=== PATIENT | female | born 1975 | race Caucasian/White ===

== ENCOUNTER → 2016-09-12 | Outpatient (CLI) | payer BC | END | disposition home or self-care (01) | LOC: MW.CHIM 11:05 | PROVIDERS: ATTEND Internal Medicine | DX: E07.9 Disorder of thyroid, unspecified (principal) | CPT/HCPCS: 36415; 84439; 84443 ==

== ENCOUNTER 2018-08-14 15:33 | Emergency (ER) | payer BC ==
--- NOTE | 2018-08-14 16:45 | EDM.PDOC ---
ED HPI GENERAL MEDICAL PROBLEM - General Chief Complaint: General Stated Complaint: LEFT EAR BLEEDING PT IS ON BLOOD THINNERS Time Seen by Provider: 08/14/18 15:35 - History of Present Illness INITIAL COMMENTS - FREE TEXT/NARRATIVE: HISTORY AND PHYSICAL: History of present illness: Patient's 43-year-old female presents with concern of bleeding from a air ring that was placed earlier today. Patient is on Plavix and aspirin for acute ND and stent placement that occurred in 2014. Review of systems: As per history of present illness and below otherwise all systems reviewed and negative. Past medical history: As per history of present illness and as reviewed below otherwise noncontributory. Surgical history: As per history of present illness and as reviewed below otherwise noncontributory. Social history: No reported history of drug or alcohol abuse. Family history: As per history of present illness and as reviewed below otherwise noncontributory. Physical exam: HEENT: Atraumatic, normocephalic, pupils reactive, negative for conjunctival pallor or scleral icterus, mucous membranes moist, throat clear, neck supple, nontender, trachea midline. Patient is significant bleeding in the form of venous ooze from her ear ring in the left pinna cartilage. Lungs: Clear to auscultation, breath sounds equal bilaterally, chest nontender. Heart: S1S2, regular, negative for clicks, rubs, or JVD. Abdomen: Soft, nondistended, nontender. Negative for masses or hepatosplenomegaly. Negative for costovertebral tenderness. Pelvis: Stable nontender. Genitourinary: Deferred. Rectal: Deferred. Extremities: Atraumatic, negative for cords or calf pain. Neurovascular unremarkable. Neuro: Awake, alert, oriented. Cranial nerves II through XII unremarkable. Cerebellum unremarkable. Motor and sensory unremarkable throughout. Exam nonfocal. Diagnostics: None Therapeutics: Blood and clot was removed Surgicel Vaseline gauze and 4 x 4 with occlusive dressing was placed with good hemostasis Impression: #1 coagulopathy with bleeding status post ear ring placement Definitive disposition and diagnosis as appropriate pending reevaluation and review of above. - Related Data Allergies Allergy/AdvReac Type Severity Reaction Status Date / Time No Known Allergies Allergy Verified 08/14/18 15:43 Home Meds: Home Meds Metoprolol Succinate [Toprol XL] 25 mg PO DAILY 12/20/16 [History] Prasterone (DHEA)/Calcium Carb [DHEA] 15 mg PO ASDIRECTED 05/14/16 [History] Simvastatin [Zocor] 20 mg PO DAILY 05/14/16 [History] Aspirin 81 mg PO DAILY 08/14/18 [History] Progesterone,Micronized [Progesterone] 1 tab PO ASDIRECTED PRN 08/14/18 [History ] Thyroid,Pork [Information Security Associate Thyroid 120] 112.5 mg PO DAILY 08/14/18 [History] Past Medical History HEENT History: Reports: None Cardiovascular History: Reports: CAD, High Cholesterol, ND, Stents, Other (See Below) Respiratory History: Reports: None Gastrointestinal History: Reports: None Genitourinary History: Reports: None Musculoskeletal History: Reports: Other (See Below) Other Musculoskeletal History: osteopenia Neurological History: Reports: Migraines Psychiatric History: Reports: Anxiety, Depression Endocrine/Metabolic History: Reports: Hypothyroidism Hematologic History: Reports: None - Infectious Disease History Infectious Disease History: Reports: Chicken Pox - Past Surgical History Head Surgeries/Procedures: Reports: None HEENT Surgical History: Reports: Oral Surgery, Tonsillectomy GI Surgical History: Reports: Hernia, Inguinal, Hernia Repair/Other - History Comment History Comment: denies etoh Social & Family History - Family History Family Medical History: Noncontributory - Tobacco Use Smoking Status *Q: Never Smoker - Caffeine Use Caffeine Use: Reports: Soda - Recreational Drug Use Recreational Drug Use: No ED ROS GENERAL - Review of Systems Review Of Systems: ROS reveals no pertinent complaints other than HPI. ED EXAM, GENERAL - Physical Exam Exam: See Below (See dictation) Course - Vital Signs Last Recorded V/S: Last Vital Signs Temp 36.3 C 08/14/18 15:38 Pulse 105 H 08/14/18 15:38 Resp 16 08/14/18 15:38 BP 122/68 08/14/18 15:38 Pulse Ox 98 08/14/18 15:38 Departure - Departure Time of Disposition: 16:44 Disposition: Home, Self-Care 01 Condition: Good Clinical Impression: Ear wound, Coagulopathy - Discharge Information Referrals: PCP,Unknown [Primary Care Provider] - Additional Instructions: The following information is given to patients seen in the emergency department who are being discharged to home. This information is to outline your options for follow-up care. We provide all patients seen in our emergency department with a follow-up referral. The need for follow-up, as well as the timing and circumstances, are variable depending upon the specifics of your emergency department visit. If you don't have a primary care physician on staff, we will provide you with a referral. We always advise you to contact your personal physician following an emergency department visit to inform them of the circumstance of the visit and for follow-up with them and/or the need for any referrals to a consulting specialist. The emergency department will also refer you to a specialist when appropriate. This referral assures that you have the opportunity for followup care with a specialist. All of these measure are taken in an effort to provide you with optimal care, which includes your followup. Under all circumstances we always encourage you to contact your private physician who remains a resource for coordinating your care. When calling for followup care, please make the office aware that this follow-up is from your recent emergency room visit. If for any reason you are refused follow-up, please contact the [facility] emergency department at and asked to speak to the emergency department charge nurse. Dressing as directed monitor for bleeding as discussed return for reevaluation in 24-48 hours hold aspirin and Plavix
[2018-08-14] MEDS ORDERED: Acetaminophen/HYDROcodone 325-5 MG Tab PO ONE (16:56)
[2018-08-14] MEDS ORDERED: Acetaminophen/HYDROcodone 325-5 MG Tab ONE (16:58)
[2018-08-14 17:07] VITALS: BP 97/51
== END 2018-08-14 17:04 | disposition home or self-care (01) ==
LOC: MW.ED 15:33
DX: H92.22 Otorrhagia, left ear (principal); D68.9 Coagulation defect, unspecified; Z79.899 Other long term (current) drug therapy; E78.00 Pure hypercholesterolemia, unspecified; I25.2 Old myocardial infarction; F32.9 Major depressive disorder, single episode, unspecified; E03.9 Hypothyroidism, unspecified
CPT/HCPCS: 99283; A9270

== ENCOUNTER 2018-08-16 16:12 | Emergency (ER) | payer BC ==
--- NOTE | 2018-08-16 16:36 | EDM.PDOC ---
ED HPI GENERAL MEDICAL PROBLEM - General Chief Complaint: Wound Recheck Stated Complaint: FOLLOW UP Time Seen by Provider: 08/16/18 16:31 Source of Information: Reports: Patient History Limitations: Reports: No Limitations - History of Present Illness INITIAL COMMENTS - FREE TEXT/NARRATIVE: HISTORY AND PHYSICAL: History of present illness: Patient is a 43-year-old female here for wound recheck. Patient had an earring placed in the cartilage of her left ear 2 days ago. She presented to the ED after having it placed as it would not stop bleeding. Patient is on plavix and aspirin for history of acute PA and stent placement. She has not noticed any bleeding since it was packed with surgical and then wrapped with gauze. Review of systems: As per history of present illness and below otherwise all systems reviewed and negative. Past medical history: As per history of present illness and as reviewed below otherwise noncontributory. Surgical history: As per history of present illness and as reviewed below otherwise noncontributory. Social history: No reported history of drug or alcohol abuse. Family history: As per history of present illness and as reviewed below otherwise noncontributory. Physical exam: General: Patient sitting comfortably in no acute distress and nontoxic appearing HEENT: There is an earring in the antihelix of the left ear with dried blood noted around this. Atraumatic, normocephalic, pupils reactive, negative for conjunctival pallor or scleral icterus, mucous membranes moist, throat clear, neck supple, nontender, trachea midline. No meningeal signs. Lungs: Clear to auscultation, breath sounds equal bilaterally, chest nontender. Heart: S1S2, regular, negative for clicks, rubs, or overt murmur. Abdomen: Soft, nondistended, nontender. Negative for masses or hepatosplenomegaly. Negative for costovertebral tenderness. No rigidity, rebound , guarding. Pelvis: Stable nontender. Genitourinary: Deferred. Rectal: Deferred. Extremities: Atraumatic, negative for cords or calf pain. Neurovascular unremarkable. Neuro: Awake, alert, oriented. Cranial nerves II through XII unremarkable. Cerebellum unremarkable. Motor and sensory unremarkable throughout. Exam nonfocal. Notes: Diagnostics: None Therapeutics: None Prescriptions: None Impression: Wound recheck Plan: 1. Do no mess with the earring or sleep on the left ear as discussed 2. Follow up with primary care provider 3. Return to ED As needed as discussed Definitive disposition and diagnosis as appropriate pending reevaluation and review of above. - Related Data Allergies Allergy/AdvReac Type Severity Reaction Status Date / Time No Known Allergies Allergy Verified 08/14/18 15:43 Home Meds: Home Meds Metoprolol Succinate [Toprol XL] 25 mg PO DAILY 05/14/16 [History] Prasterone (DHEA)/Calcium Carb [DHEA] 15 mg PO ASDIRECTED 05/14/16 [History] Simvastatin [Zocor] 20 mg PO DAILY 05/14/16 [History] Aspirin 81 mg PO DAILY 08/14/18 [History] Progesterone,Micronized [Progesterone] 1 tab PO ASDIRECTED PRN 08/14/18 [History ] Thyroid,Pork [Asphalt Raker Thyroid 120] 112.5 mg PO DAILY 08/14/18 [History] Clopidogrel [Plavix] 75 mg PO DAILY 08/16/18 [History] Past Medical History HEENT History: Reports: None Cardiovascular History: Reports: CAD, High Cholesterol, PA, Stents, Other (See Below) Respiratory History: Reports: None Gastrointestinal History: Reports: None Genitourinary History: Reports: None Musculoskeletal History: Reports: Other (See Below) Other Musculoskeletal History: osteopenia Neurological History: Reports: Migraines Psychiatric History: Reports: Anxiety, Depression Endocrine/Metabolic History: Reports: Hypothyroidism Hematologic History: Reports: None - Infectious Disease History Infectious Disease History: Reports: Chicken Pox - Past Surgical History Head Surgeries/Procedures: Reports: None HEENT Surgical History: Reports: Oral Surgery, Tonsillectomy GI Surgical History: Reports: Hernia, Inguinal, Hernia Repair/Other - History Comment History Comment: denies etoh Social & Family History - Family History Family Medical History: Noncontributory - Tobacco Use Smoking Status *Q: Never Smoker Second Hand Smoke Exposure: No - Caffeine Use Caffeine Use: Reports: Soda - Recreational Drug Use Recreational Drug Use: No ED ROS GENERAL - Review of Systems Review Of Systems: ROS reveals no pertinent complaints other than HPI. ED EXAM, SKIN/RASH Exam: See Below (see dictation) Course - Vital Signs Last Recorded V/S: Last Vital Signs Temp 96.5 F 08/16/18 16:21 Pulse 75 08/16/18 16:21 Resp 18 08/16/18 16:21 BP 123/46 L 08/16/18 16:21 Pulse Ox 98 08/16/18 16:21 Departure - Departure Time of Disposition: 16:57 Disposition: Home, Self-Care 01 Condition: Good Clinical Impression: Encounter for wound re-check - Discharge Information Referrals: PCP,Unknown [Primary Care Provider] - Forms: ED Department Discharge Additional Instructions: The following information is given to patients seen in the emergency department who are being discharged to home. This information is to outline your options for follow-up care. We provide all patients seen in our emergency department with a follow-up referral. The need for follow-up, as well as the timing and circumstances, are variable depending upon the specifics of your emergency department visit. If you don't have a primary care physician on staff, we will provide you with a referral. We always advise you to contact your personal physician following an emergency department visit to inform them of the circumstance of the visit and for follow-up with them and/or the need for any referrals to a consulting specialist. The emergency department will also refer you to a specialist when appropriate. This referral assures that you have the opportunity for follow-up care with a specialist. All of these measure are taken in an effort to provide you with optimal care, which includes your follow-up. Under all circumstances we always encourage you to contact your private physician who remains a resource for coordinating your care. When calling for follow-up care, please make the office aware that this follow-up is from your recent emergency room visit. If for any reason you are refused follow-up, please contact the [facility] Emergency Department at and asked to speak to the emergency department charge nurse. [facility] [address] [place] [id number] [address] 1. Do no mess with the earring or sleep on the left ear as discussed 2. Follow up with primary care provider 3. Return to ED As needed as discussed
[2018-08-16 17:22] VITALS: BP 113/61
== END 2018-08-16 17:10 | disposition home or self-care (01) ==
LOC: MW.ED 16:12
DX: Z48.00 Encounter for change or removal of nonsurgical wound dressing (principal); I25.2 Old myocardial infarction; E03.9 Hypothyroidism, unspecified; Z79.899 Other long term (current) drug therapy; Z79.82 Long term (current) use of aspirin; Z79.02 Long term (current) use of antithrombotics/antiplatelets
CPT/HCPCS: 99282

== ENCOUNTER → 2020-03-01 | Day surgery (SDC) | payer BC ==
[~2020-03-01] MED LIST: Lactated Ringers 1,000 ML IV SCH; Sodium Chloride 0.9% 10 ML SDV IV PRN; Sodium Chloride 0.9% 10 ML Syringe FLUSH PRN; Sodium Chloride 0.9% 2.5 ML Syringe FLUSH PRN
--- NOTE | 2020-03-01 10:34 | PCM.SN.2 ---
- Free Text/Narrative Note: covid +ve, colonoscopy cancelled, pls call office reschedule 6 wks later
== END ==
LOC: MW.SDS 08:29
PROVIDERS: ATTEND Surgery
DX: K62.5 Hemorrhage of anus and rectum (principal); U07.1 COVID-19; Z53.09 Procedure and treatment not carried out because of other contraindication
CPT/HCPCS: U0002

== ENCOUNTER 2020-03-08 08:05 | Day surgery (SDC) | payer BC ==
[~2020-03-08 08:05] MED LIST changes: -Sodium Chloride 0.9% 10 ML SDV IV PRN; -Sodium Chloride 0.9% 10 ML Syringe FLUSH PRN; -Sodium Chloride 0.9% 2.5 ML Syringe FLUSH PRN
[2020-03-08] MEDS ORDERED: Propofol 200 MG/20 ML SDV ONE (08:30)
[2020-03-08] MEDS ORDERED: Lidocaine 2% 5 ML SDV ONE (08:30)
[2020-03-08] MEDS ORDERED: fentaNYL 100 MCG/2 ML SDV ONE (08:31)
--- NOTE | 2020-03-08 08:50 | PCM.PREANE ---
Preanesthetic Assessment - Anesthesia/Transfusion/Family Hx Anesthesia History: Prior Anesthesia Without Reaction Family History of Anesthesia Reaction: No Transfusion History: No Prior Transfusion(s) Intubation History: Unknown - Review of Systems General: No Symptoms Pulmonary: No Symptoms Cardiovascular: No Symptoms Gastrointestinal: Abdominal Pain Neurological: No Symptoms Other: Reports: None - Physical Assessment Height: 5 ft 6 in Weight: 69.4 kg - Lab Values: Laboratory Last Values Urine HCG, Qual NEGATIVE (NEGATIVE) 03/08/20 08:20 - Allergies Allergies/Adverse Reactions: Allergies Allergy/AdvReac Type Severity Reaction Status Date / Time No Known Allergies Allergy Verified 03/03/20 12:06 - Blood Blood Available: No - Anesthesia Plan Pre-Op Medication Ordered: None - Acknowledgements Anesthesia Type Planned: MAC Pt an Appropriate Candidate for the Planned Anesthesia: Yes Alternatives and Risks of Anesthesia Discussed w Pt/Guardian: Yes Pt/Guardian Understands and Agrees with Anesthesia Plan: Yes PreAnesthesia Questionnaire HEENT History: Reports: None Cardiovascular History: Reports: CAD, High Cholesterol, [place], Stents (), Other (See Below) Other Cardiovascular History: TN in 2014 Respiratory History: Reports: None Gastrointestinal History: Reports: None Genitourinary History: Reports: None Musculoskeletal History: Reports: Other (See Below) Other Musculoskeletal History: osteopenia Neurological History: Reports: Migraines Psychiatric History: Reports: Anxiety, Depression Endocrine/Metabolic History: Reports: Hypothyroidism Hematologic History: Reports: None Immunologic History: Reports: None Oncologic (Cancer) History: Reports: None Dermatologic History: Reports: None - Infectious Disease History Infectious Disease History: Reports: Chicken Pox - Past Surgical History Head Surgeries/Procedures: Reports: None HEENT Surgical History: Reports: Oral Surgery, Tonsillectomy Cardiovascular Surgical History: Reports: Coronary Artery Stent Other Cardiovascular Surgeries/Procedures: hx coronary angiography with concomitant left heart catheterization Respiratory Surgical History: Reports: None GI Surgical History: Reports: Hernia, Inguinal, Hernia Repair/Other Female Surgical History: Reports: None Endocrine Surgical History: Reports: None Neurological Surgical History: Reports: None Musculoskeletal Surgical History: Reports: None Oncologic Surgical History: Reports: None Dermatological Surgical History: Reports: Plastic Surgical Reconstruction/Repair - History Comment History Comment: denies etoh - SUBSTANCE USE Tobacco Use Status *Q: Never Tobacco User Recreational Drug Use History: No - HOME MEDS Home Medications: Home Meds Metoprolol Succinate [Toprol XL] 25 mg PO DAILY 12/20/16 [History] Simvastatin [Zocor] 20 mg PO DAILY 05/14/16 [History] Aspirin 81 mg PO DAILY 08/14/18 [History] Progesterone, Micronized [Progesterone] 62 mg PO ASDIRECTED PRN 08/14/18 [History] Thyroid,Pork [Youth Manager Thyroid 120] 112.5 mg PO DAILY 08/14/18 [History] Clopidogrel [Plavix] 75 mg PO DAILY 08/16/18 [History] Multivitamin [Multivitamins] 1 tab PO DAILY 02/28/20 [History] - CURRENT (IN HOUSE) MEDS Current Meds: Current Medications Lactated Ringer's (Ringers, Lactated) 1,000 mls @ 125 mls/hr IV ASDIRECTED SIXTO Discontinued Medications Fentanyl (Sublimaze) Confirm Administered Dose 100 mcg .ROUTE .STK-MED ONE Stop: 03/08/20 08:32 Lidocaine (Xylocaine-Mpf 2%) Confirm Administered Dose 5 ml .ROUTE .STK-MED ONE Stop: 03/08/20 08:31 Propofol (Diprivan 20 Ml) Confirm Administered Dose 400 mg .ROUTE .STK-MED ONE Stop: 03/08/20 08:31
[2020-03-08] MEDS ORDERED: Midazolam 1 MG/ML 2 ML SDV ONE (09:44)
--- NOTE | 2020-03-08 10:31 | PCM.OPNOTE ---
- General Post-Op/Procedure Note Date of Surgery/Procedure: 03/08/20 Operative Procedure(s): colonoscopy w bx Findings: see [id number] Pre Op Diagnosis: BRBPR and abd pain Post-Op Diagnosis: diverticulosis Anesthesia Technique: Moderate Sedation Primary Surgeon: Marek Robles Pathology: random colon bx Complications: None Condition: Good
--- NOTE | 2020-03-08 10:48 | PCM.POSTAN ---
POST ANESTHESIA ASSESSMENT - MENTAL STATUS Mental Status: Alert, Oriented - VITAL SIGNS Vital Signs: Last Vital Signs Temp 36.9 C 03/08/20 08:50 Pulse 84 03/08/20 10:32 Resp 18 03/08/20 10:32 BP 111/72 03/08/20 10:32 Pulse Ox 99 03/08/20 10:32 - RESPIRATORY Respiratory Status: Respiratory Rate WNL, Airway Patent, O2 Saturation Stable - CARDIOVASCULAR CV Status: Pulse Rate WNL, Blood Pressure Stable - GASTROINTESTINAL GI Status: No Symptoms - PAIN Pain Score: 0 - POST OP HYDRATION Hydration Status: Adequate & Stable - OBSERVATIONS Free Text/Narrative:: No anesthesia problems
--- NOTE | 2020-03-08 11:00 | PCM48HPAN ---
Post Anesthesia Note - EVALUATION WITHIN 48HRS OF ANESTHETIC Vital Signs in Normal Range: Yes Patient Participated in Evaluation: Yes Respiratory Function Stable: Yes Airway Patent: Yes Cardiovascular Function Stable: Yes Hydration Status Stable: Yes Pain Control Satisfactory: Yes Nausea and Vomiting Control Satisfactory: Yes Mental Status Recovered: Yes Vital Signs: Last Vital Signs Temp 36.9 C 03/08/20 08:50 Pulse 84 03/08/20 10:32 Resp 18 03/08/20 10:32 BP 111/72 03/08/20 10:32 Pulse Ox 99 03/08/20 10:32 - COMMENTS/OBSERVATIONS Free Text/Narrative:: No anesthesia problems
[2020-03-08 11:23] VITALS: BP 118/65; PULSE 81
--- NOTE | 2020-03-08 14:13 | OR ---
SURGEON: Marek Robles MD DATE OF PROCEDURE: 03/08/2020 PREOPERATIVE DIAGNOSES: Bright red blood per rectum and abdominal pain. POSTOPERATIVE DIAGNOSES: Bright red blood per rectum and abdominal pain. PROCEDURE PERFORMED: Colonoscopy with biopsy. DESCRIPTION OF PROCEDURE: The patient was taken to the endoscopy room. A time out was called, patient identified, and procedure identified. Diprivan was then administrated. Patient went from awake to sleep, hearing doctor talking or door closing is normal. Perineum inspection and digital examination were then performed. A well- lubricated colonoscope was gently inserted through the rectum, advanced past the rectosigmoid junction, the descending colon, splenic flexure, transverse colon, hepatic flexure, ascending colon, arrived to the cecum. Cecum was identified as dictated in the finding. Then the scope was carefully withdrawn while attention was paid to the mucosal surface for any abnormality. Air will be sucked out during the scope withdrawal. At the rectum, retroflexed to examine any rectal diseases, fistula or hemorrhoids. During mucosal examination, abnormality or polyp was noted; picture taken and biopsy performed. Patient tolerated procedure well. There were no intraoperative complications, and Dr. Robles was present throughout the whole procedure. FINDINGS: 1. The patient is easily sedated with PRINT FINISHER and Diprivan, the patient is soundly snoring. 2. Bowel prep is average. Some stool ball, some liquid stool, no semi-formed stool. 3. Colon is rather straightforward. Cecum indicated by ileocecal fold, one-to- one indentation, and appendiceal orifice. Light emittance is not observed. ScopeGuide is pointing south. Mucosa examined upon scope pulling out with some irrigation. The patient has some diverticula. They are not very big, but quite a lot of them and scattered pretty long, all the way to splenic fracture, all on the left side. No signs or symptoms of diverticulitis. No polyp, no mass, no growth. No inflammation, stricture, ulceration, AV malformation. Stool is yellow. Some mild internal hemorrhoids, no external hemorrhoids. The patient would benefit from repeat colonoscopy in 10 years from today or if clinically indicated otherwise. PANCHITO / HARPER /[id number]
== END 2020-03-08 12:15 | disposition home or self-care (01) ==
LOC: MW.SDS 08:05
PROVIDERS: ATTEND Surgery
DX: K62.5 Hemorrhage of anus and rectum (principal); R10.9 Unspecified abdominal pain; F41.9 Anxiety disorder, unspecified; I25.2 Old myocardial infarction; E03.9 Hypothyroidism, unspecified; I25.10 Atherosclerotic heart disease of native coronary artery without angina pectoris; E78.00 Pure hypercholesterolemia, unspecified; Z79.899 Other long term (current) drug therapy; Z79.82 Long term (current) use of aspirin; Z98.890 Other specified postprocedural states; Z95.5 Presence of coronary angioplasty implant and graft
CPT/HCPCS: 45380; 81025; 88305; J2001; J2250; J2704; J7120; J3010

== ENCOUNTER 2020-06-19 10:16 | Inpatient (IN) | payer BC ==
[~2020-06-19 10:16] MED LIST changes: +Enoxaparin 30 MG/0.3 ML Syringe SUBCUT ONE; +Fluorescein 5 ML Vial ONE; +Glycopyrrolate 0.2 MG/ML SDV ONE; +Ketorolac 30 MG/ML SDV ONE; -Lactated Ringers 1,000 ML IV SCH; +Lidocaine 2% 5 ML SDV ONE; +Midazolam 1 MG/ML 2 ML SDV ONE; +Ondansetron 4 MG/2 ML SDV ONE; +Propofol 200 MG/20 ML SDV ONE; +Rocuronium Bromide 50 MG/5 ML Syringe ONE; +fentaNYL 100 MCG/2 ML SDV IVPUSH PRN; +fentaNYL 250 MCG/5 ML SDV ONE
[2020-06-19] MEDS ORDERED: ceFAZolin 1 GM Vial ONE (10:33)
[2020-06-19] MEDS ORDERED: Sodium Chloride 0.9% 20 ML ONE (10:33)
[2020-06-19] MEDS ORDERED: Dexamethasone 4 MG/ML 5 ML MDV ONE (10:37)
[2020-06-19] MEDS: Lactated Ringers 1,000 ML IV SCH (10:40)
--- NOTE | 2020-06-19 10:47 | PCM.PREANE ---
Preanesthetic Assessment - Anesthesia/Transfusion/Family Hx Anesthesia History: Prior Anesthesia Without Reaction Family History of Anesthesia Reaction: No Transfusion History: No Prior Transfusion(s) Intubation History: Unknown - Review of Systems General: No Symptoms Pulmonary: No Symptoms Cardiovascular: No Symptoms Gastrointestinal: No Symptoms Neurological: No Symptoms Other: Reports: None - Physical Assessment Vital Signs: Last Vital Signs Temp 36.6 C 06/19/20 10:30 Pulse 100 06/19/20 10:30 Resp 15 06/19/20 10:30 BP 125/58 L 06/19/20 10:30 Pulse Ox 95 06/19/20 10:30 Height: 5 ft 7 in Weight: 68.039 kg ASA Class: 2 Mental Status: Alert & Oriented x3 Airway Class: Mallampati = 2 Dentition: Reports: Normal Dentition Thyro-Mental Finger Breadths: 3 Mouth Opening Finger Breadths: 3 ROM/Head Extension: Full Lungs: Clear to Auscultation, Normal Respiratory Effort Cardiovascular: Regular Rate, Regular Rhythm - Allergies Allergies/Adverse Reactions: Allergies Allergy/AdvReac Type Severity Reaction Status Date / Time No Known Allergies Allergy Verified 06/14/20 12:26 - Blood Blood Available: No - Anesthesia Plan Pre-Op Medication Ordered: None - Acknowledgements Anesthesia Type Planned: General Anesthesia Pt an Appropriate Candidate for the Planned Anesthesia: Yes Alternatives and Risks of Anesthesia Discussed w Pt/Guardian: Yes Pt/Guardian Understands and Agrees with Anesthesia Plan: Yes PreAnesthesia Questionnaire HEENT History: Reports: Hard of Hearing Other HEENT History: wears a hearing aide on the right ear Cardiovascular History: Reports: CAD, IL Other Cardiovascular History: IL in 2014, stent placed in obtuse marginal artery- runs half marathons since. Takes anti HTN and cholesterol lowering meds because of CAD. Respiratory History: Reports: None Gastrointestinal History: Reports: Diverticulosis Genitourinary History: Reports: None TRIM SETTER History: Reports: Dysfunctional Uterine Bleeding, Musculoskeletal History: Reports: Fracture Other Musculoskeletal History: hx of fx ribs and stress fx in lower legs Neurological History: Reports: Migraines Psychiatric History: Reports: Anxiety, Depression, Panic Attack Endocrine/Metabolic History: Reports: Hypothyroidism, Osteopenia Hematologic History: Reports: Anticoagulation Therapy Immunologic History: Reports: None Oncologic (Cancer) History: Reports: None Dermatologic History: Reports: None - Infectious Disease History Infectious Disease History: Reports: Chicken Pox - Past Surgical History Head Surgeries/Procedures: Reports: None HEENT Surgical History: Reports: Adenoidectomy, Tonsillectomy Cardiovascular Surgical History: Reports: Coronary Artery Stent Other Cardiovascular Surgeries/Procedures: had IL on 2015- had Angioplasty with 1 stent placed- no symptoms since GI Surgical History: Reports: Hernia, Abdominal, Hernia, Inguinal Other GI Surgeries/Procedures: hx of Umbilical hernia repair, hx of Abdominoplasty - History Comment History Comment: denies etoh - SUBSTANCE USE Tobacco Use Status *Q: Never Tobacco User Recreational Drug Use History: No - HOME MEDS Home Medications: Home Meds Metoprolol Succinate [Toprol XL] 25 mg PO QAM 05/14/16 [History] Simvastatin [Zocor] 20 mg PO BEDTIME 05/14/16 [History] Aspirin 81 mg PO DAILY 08/14/18 [History] Progesterone, Micronized [Progesterone] 62 mg PO ASDIRECTED PRN 08/14/18 [History] Clopidogrel [Plavix] 75 mg PO DAILY 08/16/18 [History] Multivitamin [Multivitamins] 1 tab PO DAILY 02/28/20 [History] Prasterone (DHEA)/Calcium Carb [DHEA 10 MG] 10 mg PO DAILY 06/14/20 [History] Thyroid,Pork [Washroom Attendant Thyroid] 135 mg PO QAM 06/14/20 [History] - CURRENT (IN HOUSE) MEDS Current Meds: Current Medications Fentanyl (Sublimaze) 50 mcg IVPUSH Q5M PRN PRN Reason: Pain Lactated Ringer's (Ringers, Lactated) 1,000 mls @ 100 mls/hr IV ASDIRECTED SIXTO Acetaminophen 1,000 mg/ Premix 100 mls @ 400 mls/hr IV Q6H PRN PRN Reason: Pain Discontinued Medications Cefazolin Sodium (Ancef) Confirm Administered Dose 2 gm .ROUTE .STK-MED ONE Stop: 06/19/20 10:34 Dexamethasone (Dexamethasone) Confirm Administered Dose 20 mg .ROUTE .STK-MED ONE Stop: 06/19/20 10:38 Enoxaparin Sodium (Lovenox) 30 mg SUBCUT ONETIME ONE Stop: 06/19/20 06:32 Fentanyl (Sublimaze) Confirm Administered Dose 250 mcg .ROUTE .STK-MED ONE Stop: 06/19/20 07:22 Fluorescein Sodium (Ak-Fluor) Confirm Administered Dose 5 ml .ROUTE .STK-MED ONE Stop: 06/19/20 09:48 Glycopyrrolate (Robinul) Confirm Administered Dose 0.8 mg .ROUTE .STK-MED ONE Stop: 06/19/20 07:22 Sodium Chloride (Normal Saline) Confirm Administered Dose 20 mls @ as directed .ROUTE .STK-MED ONE Stop: 06/19/20 10:34 Ketorolac Tromethamine (Toradol) Confirm Administered Dose 30 mg .ROUTE .STK-MED ONE Stop: 06/19/20 07:22 Lidocaine (Xylocaine-Mpf 2%) Confirm Administered Dose 5 ml .ROUTE .ST-MED ONE Stop: 06/19/20 07:22 Midazolam HCl (Versed 1 Mg/Ml) Confirm Administered Dose 2 mg .ROUTE .STK-MED ONE Stop: 06/19/20 07:22 Ondansetron HCl (Zofran) Confirm Administered Dose 4 mg .ROUTE .STK-MED ONE Stop: 06/19/20 07:22 Propofol (Diprivan 20 Ml) Confirm Administered Dose 200 mg .ROUTE .STK-MED ONE Stop: 06/19/20 07:22 Rocuronium [place] (Rocuronium [place]) Confirm Administered Dose 50 mg .ROUTE .STK-MED ONE Stop: 06/19/20 07:22
[2020-06-19 11:35] LABS: BLOOD UREA NITROGEN,BUN 20 mg/dL (7.0-18.0); CARBON DIOXIDE,CO2 26.7 mmol/L (21.0-32.0); CHLORIDE,CL 109 mmol/L (98-107); GLUCOSE RANDOM 91 mg/dL (74-106); POTASSIUM,K 4.5 mmol/L (3.5-5.1); SODIUM,NA 145 mmol/L (136-145)
[2020-06-19] MEDS ORDERED: fentaNYL 250 MCG/5 ML SDV ONE (12:18)
[2020-06-19] MEDS ORDERED: Acetaminophen/oxyCODONE 325-5 MG Tab PO PRN ×2 (13:09)
[2020-06-19] MEDS ORDERED: Ondansetron 4 MG/2 ML SDV IVPUSH PRN ×2 (13:09→23:22)
[2020-06-19] MEDS ORDERED: Morphine 4 MG/ML Syringe IVPUSH PRN (13:09)
--- NOTE | 2020-06-19 13:09 | PCM.OPNOTE ---
- General Post-Op/Procedure Note Date of Surgery/Procedure: 06/19/20 Operative Procedure(s): total vaginal hysterectomy, cystoscopy Findings: 10 weeks size uturus, paragard string visible at cervix, normal tubes and ovaries, Normal bladder mucosa, with normal flow from bilateral ureteral orifices. Pre Op Diagnosis: menorrhagia Post-Op Diagnosis: Same Anesthesia Technique: General ET Tube Primary Surgeon: Amie Drummond Secondary Surgeon: Manisha Feldman Anesthesia Provider: Jacob Murry [place] Clerk: Saqib Alicea Pathology: Utuerus with paragard IUD Fluid Replacement, Intraop: 1,200 EBL in mLs: 100 Complications: None Known Condition: Good
[2020-06-19] MEDS: Acetaminophen 1,000 MG in Premix Bag 1 BAG IV PRN (13:10)
[2020-06-19] MEDS ORDERED: HYDROmorphone 2 MG/ML Syringe ONE (13:19)
[2020-06-19] MEDS ORDERED: HYDROmorphone 2 MG/ML Syringe IVPUSH ONE (13:20)
[2020-06-19] MEDS: Promethazine 25 MG/ML SDV IM PRN (13:55)
--- NOTE | 2020-06-19 14:21 | PCM.POSTAN ---
POST ANESTHESIA ASSESSMENT - MENTAL STATUS Mental Status: Alert, Oriented - VITAL SIGNS Vital Signs: Last Vital Signs Temp 97.3 F 06/19/20 13:01 Pulse 74 06/19/20 14:12 Resp 14 06/19/20 14:12 BP 112/45 L 06/19/20 14:12 Pulse Ox 95 06/19/20 14:12 - RESPIRATORY Respiratory Status: Respiratory Rate WNL, Airway Patent, O2 Saturation Stable - CARDIOVASCULAR CV Status: Pulse Rate WNL, Blood Pressure Stable - GASTROINTESTINAL GI Status: No Symptoms - PAIN Pain Score: 3 - POST OP HYDRATION Hydration Status: Adequate & Stable
--- NOTE | 2020-06-19 15:26 | OR ---
SURGEON: Amie Drummond M.D. DATE OF PROCEDURE: 06/19/2020 PREOPERATIVE DIAGNOSIS: Menometrorrhagia. POSTOPERATIVE DIAGNOSIS: Menometrorrhagia. PROCEDURES: Total vaginal hysterectomy and cystoscopy. PRIMARY SURGEON: Amie Drummond M.D. GENERAL SERVICE TECHNICIAN: Manisha Feldman MD ANESTHESIA: General endotracheal. FLUIDS: 1200 mL of crystalloid. ESTIMATED BLOOD LOSS: 100 mL. FINDINGS: Uterus 10 weeks size. ParaGard IUD in place. Normal-appearing tubes and ovaries. On cystoscopy, there was no evidence of any trauma to the bladder mucosa. There was copious flow of urine from bilateral ureteral orifices. DISPOSITION: Stable to Recovery. COMPLICATIONS: None known. BRIEF HISTORY: This is a 45-year-old female. She has been utilizing a ParaGard IUD for contraception. She has experienced heavy bleeding. Additionally, she is on clopidogrel and aspirin due to personal history of myocardial infarction, and this is managed by her nurse practitioner home assessments. The recommendation is for her to continue on these medications, which have caused severe bleeding. I did offer and recommend consideration of a Mirena IUD. However, due to the package insert indicating risk of thrombosis even though I explained that this is more related to estrogen type hormones, she does not want any hormonal IUD or hormonal treatment for her heavy bleeding. I did offer removal of the ParaGard with an endometrial ablation, and she declines and desires definitive management of her heavy periods with hysterectomy. Risks were discussed including bleeding; infection; injury to bowel, bladder, blood vessels, ureters, or other organs; risk of thromboembolic event; and risk of anesthesia. Understanding all these risks, she does desire to proceed. DESCRIPTION OF PROCEDURE: With the patient in the dorsal lithotomy position, under adequate general endotracheal anesthesia, the abdomen was prepped with chlorhexidine. Perineum and vagina were prepped with Betadine and draped in usual fashion for pelvic surgery. SCDs were in place. Fitzpatrick catheter had been placed. An appropriate time-out was held, and she had received Lovenox 30 mg IV prior to the surgery. Bimanual examination revealed a 10-week size mobile uterus. IUD string was visible. A weighted speculum was placed in the vagina and with retraction, the cervix was grasped with a Sujit tenaculum, circumscribed using electrocautery. The anterior peritoneum was pushed away. I could feel the peritoneum slide between my finger and the anterior uterus. However, this was fairly high in the pelvis. I then opened the posterior cul-de-sac sharply and placed a Joie- Auvard speculum, and with the bladder retracted cephalad, I was able to doubly clamp and cut the uterosacral ligament and ligate with a simple suture followed by a Lucas ligature of 2-0 Polysorb. These were retained for support of the vaginal apex. Two additional pedicles were taken on the right and the left. These were doubly clamped, cut, and ligated using Lucas ligature after a simple tie ligature of 2-0 Polysorb. At this point, I was able to clearly delineate the anterior peritoneum and enter the very thin remaining layer. A finger was used to palpate the anterior uterus, and a right angle retractor was utilized in the anterior cul-de-sac. Another pedicle was taken, doubly clamping and cutting on the right and left, and 2 additional pedicles were taken using a Lucas clamp and then ligating with a Lucas ligature of 2-0 Polysorb. The utero-ovarian ligament was then identified, doubly clamped, cut, and ligated with a simple ligature followed by a three-point ligature. The utero-ovarian ligament was then doubly ligated, and the tubes and ovaries were inspected. They appeared normal. This pedicle was carefully inspected and then released. The remaining pedicles were all inspected and were hemostatic. There was a moderate amount of bleeding from the posterior cuff. Therefore, a running lock suture was placed along the posterior cuff, which resolved this bleeding. The retained uterosacral ligaments were then ligated to the vaginal apices bilaterally. Final careful inspection revealed no active bleeding. The vaginal mucosa was then closed with a running lock suture of 0 Polysorb, and the uterosacral ligaments had been tied in the midline during the closure. The catheter was then removed. IV fluorescein and Lasix had been given, and cystoscopy was performed with excellent visualization. There was no evidence of any trauma to the bladder mucosa. Bilateral ureteral orifices appeared normal, and the cystoscope was removed. The catheter was replaced. The vagina was inspected with a speculum and was hemostatic. Final sponge, needle, and instrument counts were reported as correct. There were no known complications. The patient was transferred to Recovery in good condition. CHARITY / HARPER /[id number]
--- NOTE | 2020-06-19 17:20 | PCM.SN.2 ---
- Free Text/Narrative Note: patient is resting comfortably, nausea improved. she has not required pain medication since PACU, has not yet eaten Reviewed operative findings. Encouraged po pain meds if possible, try small amount of food, ambulate tonight if possible.
[2020-06-20] MEDS: Lactated Ringers 1,000 ML IV ONE ×2 (00:42→02:56)
[2020-06-20] MEDS ORDERED: Promethazine 25 MG/ML SDV IM PRN (01:03)
[2020-06-20] MEDS: Promethazine 25 MG/ML SDV IM PRN (01:08)
[2020-06-20] MEDS: Lactated Ringers 1,000 ML IV SCH ×5 (01:19→20:14)
--- NOTE | 2020-06-20 01:36 | PCM.SN.2 ---
- Free Text/Narrative Note: Called by RN regarding patient nausea, ordered to give Zofran for nausea. Called by RN shortly after regarding rapid response being called on patient due to hypotension and loss of consciousness. Orders given for CBC, CMP, and IV fluid bolus. I arrived to the room with patient oriented to person/time/place. She was c omplaining of significant nausea and pain in the right upper quadrant. She stated this pain was worse with taking deep breaths. She also reported throat pain. BP 70-80s/40-50s HR 80-90s SpO2 98-100% Gen: Mild distress CV: RRR Lungs: CTAB Abd: Soft, nondistended, globally tender to mild palpation Vaginal pad with small amount of blood Urine output has been adequate. Patient had been given morphine in addition for pain by RN. Order given for Phenergan IM. EKG normal sinus rhythm. CBC has been reviewed, hemoglobin with larger drop than expected from surgery, but with patient having heavy menstrual periods, I suspect her pre-op hemoglobin was concentrated and elevated. I suspect patient had vasovagal episode due nausea and pain. I do not suspect PE given normal SpO2. I do not suspect acute IA due to location of pain and EKG findings. I do not suspect intraabdominal bleeding due to minimal vaginal bleeding, adequate urine output, and normal pulse. Continue to monitor closely. CMP still pending.
[2020-06-20 02:09] LABS: CARBON DIOXIDE,CO2 25.8 mmol/L (21.0-32.0); POTASSIUM,K 4.3 mmol/L (3.5-5.1)
[2020-06-20] MEDS ORDERED: Sodium Chloride 0.9% 1,000 ML IV SCH (02:45)
[2020-06-20] MEDS ORDERED: Lactated Ringers 1,000 ML IV ONE (02:48)
[2020-06-20] MEDS ORDERED: Calcium Gluconate 10% 1 GM/10 ML SDV IV ONE (03:15)
[2020-06-20] MEDS ORDERED: Midazolam 1 MG/ML 2 ML SDV ONE (03:37)
[2020-06-20] MEDS ORDERED: fentaNYL 250 MCG/5 ML SDV ONE (03:37)
[2020-06-20] MEDS ORDERED: Rocuronium Bromide 50 MG/5 ML Syringe ONE (03:37)
[2020-06-20] MEDS ORDERED: Propofol 200 MG/20 ML SDV ONE (03:37)
[2020-06-20] MEDS ORDERED: Lidocaine 2% 5 ML SDV ONE (03:38)
[2020-06-20] MEDS ORDERED: Bupivacaine 0.25% 10 ML SDV ONE (04:17)
[2020-06-20] MEDS ORDERED: 50% Dextrose in Water 50 ML Syringe IVPUSH PRN (04:40)
[2020-06-20] MEDS ORDERED: Naloxone 0.4 MG/ML Syringe IVPUSH PRN (04:40)
[2020-06-20] MEDS ORDERED: fentaNYL 100 MCG/2 ML SDV IVPUSH PRN (04:40)
[2020-06-20] MEDS ORDERED: EPINEPHrine 1:10,000 1 MG/10 ML Syringe IVPUSH PRN (04:40)
[2020-06-20] MEDS ORDERED: Albuterol 0.083% 2.5 MG/3 ML Neb Soln NEB PRN (04:40)
[2020-06-20] MEDS ORDERED: Atropine 0.1 MG/ML 10 ML Syringe IVPUSH PRN ×2 (04:40)
[2020-06-20] MEDS ORDERED: Glycopyrrolate 0.2 MG/ML SDV ONE (05:13)
[2020-06-20] MEDS ORDERED: Ondansetron 4 MG/2 ML SDV ONE (05:13)
--- NOTE | 2020-06-20 05:50 | PCM.OPNOTE ---
- General Post-Op/Procedure Note Date of Surgery/Procedure: 06/20/20 Operative Procedure(s): exploratory laparoscopy with evacuation of hemoperitoneum, establish hemostasis. Findings: 1500 ml of hemoperitoneum. The was no discrete area of bleeding, but diffuse bleeding anterior to the vaginal cuff and just above the right uterosacral ligament. All pedicles were intact and hemostatic Pre Op Diagnosis: hemoperitoneum Post-Op Diagnosis: Same Anesthesia Technique: General ET Tube Primary Surgeon: Amie Drummond Anesthesia Provider: Jacob Murry [employer] Associate: Saqib Alicea Pathology: none Fluid Replacement, Intraop: 2,400 (3 units of PRBC, 1 unit of FFP) EBL in mLs: 20 (1500 hemoperitoneum) Complications: None Known Condition: Good Free Text/Narrative:: Intake & Output 06/19/20 06/19/20 06/20/20 14:59 22:59 06:59 Intake Total 2700 440 Output Total 250 Balance 2700 190
[2020-06-20] MEDS ORDERED: Ondansetron 4 MG/2 ML SDV IVPUSH PRN (05:52)
[2020-06-20] MEDS ORDERED: Acetaminophen/oxyCODONE 325-5 MG Tab PO PRN ×2 (05:52)
[2020-06-20 06:07] LABS: CARBON DIOXIDE,CO2 23.8 mmol/L (21.0-32.0)
--- NOTE | 2020-06-20 06:47 | HP ---
DATE OF : 1975 PRIMARY CARE PHYSICIAN: Ranjeet Melgar MD TIME: 327. CHIEF COMPLAINT: Hypotension. HISTORY: This is a 45-year-old female. She underwent a vaginal hysterectomy today for menorrhagia. She was without complication. She was stable postoperatively. Baseline blood pressure of 107/64. Throughout the evening, blood pressures were in the 110s to one teens over upper 50s. She reported feeling dizzy shortly after midnight. Blood pressure at that time was 63/35, improved with hydration to 85/53. At that point, she was evaluated by Dr. Mazariegos, who did perform laboratory studies including a hemoglobin of 11.5, baseline hemoglobin was 15.1; white blood cell count of 13.8, baseline of 6.3; platelet count of 297. Sodium 139, potassium 4.3, chloride 105, CO2 of 25.8, creatinine 1, BUN 27, glucose of 236, calcium 7.8, AST 7, ALT 15. Troponin-I was negative at 0.050. She at that point received hydration. She has also received several medications for nausea including IM Phenergan. I was incidentally called at the time of low blood pressure, as I am not the one on-call; however, she is my patient, I came in immediately and evaluated the patient. She was conscious and talking, hypotensive. Urine was clear. At this point, she has received approximately 1200 mL of IV fluid. EKG was normal and stable from preop. She does have a history of [id number] UT and this is the reason that she was placed on Lovenox perioperatively. She has been off her clopidogrel for 5 days and aspirin for 10 days. She also did not receive any Lovenox in the perioperative period. Rapid Response was called and I requested the emergency room doctor to come and they did. He did perform a bedside ultrasound, which showed fluid in the abdomen. Therefore, it appears that she has a postoperative hemorrhage causing her hypotension and I have called Anesthesia. I have also typed and crossed 4 units of packed red blood cells. The 1st 2 units are running and she is consented for laparoscopy, possible laparotomy to evaluate for hemostasis. I have called her , however, a voicemail was left on his phone as he did not answer. She is consented for the procedure and OR is on the way. CHARITY / HARPER /[id number]
--- NOTE | 2020-06-20 07:05 | PCM.POSTAN ---
POST ANESTHESIA ASSESSMENT - MENTAL STATUS Mental Status: Alert, Oriented - VITAL SIGNS Vital Signs: Last Vital Signs Temp 36.3 C 06/20/20 05:36 Pulse 85 06/20/20 06:42 Resp 14 06/20/20 06:42 BP 94/42 L 06/20/20 06:42 Pulse Ox 99 06/20/20 06:42 - RESPIRATORY Respiratory Status: Respiratory Rate WNL, Airway Patent, O2 Saturation Stable - CARDIOVASCULAR CV Status: Pulse Rate WNL, Blood Pressure Stable - GASTROINTESTINAL GI Status: No Symptoms - PAIN Pain Score: 0 - POST OP HYDRATION Hydration Status: Adequate & Stable - OBSERVATIONS Free Text/Narrative:: No anesthesia problems
--- NOTE | 2020-06-20 07:09 | OR ---
SURGEON: Amie Drummond M.D. DATE OF PROCEDURE: 06/20/2020 PREOPERATIVE DIAGNOSIS: Hemoperitoneum. POSTOPERATIVE DIAGNOSIS: Hemoperitoneum. PROCEDURE: Laparoscopic evacuation of hemoperitoneum and evaluation for hemostasis. PRIMARY SURGEON: Amie Drummond M.D. ANESTHESIA: General endotracheal. FLUIDS: 2400 mL crystalloid, 1 unit FFP, 3 units packed red blood cells. URINE OUTPUT: 100 mL. ESTIMATED BLOOD LOSS: 1500 mL of hemoperitoneum as well as approximately 20 mL of intraoperative blood loss. COMPLICATIONS: None known. DISPOSITION: Stable to Recovery. BRIEF HISTORY: This is a 45-year-old female. She underwent a simple vaginal hysterectomy on 06/19/2020 with no complications intraoperatively. She did receive Lovenox preoperatively. She has been on clopidogrel and baby aspirin due to a history 4 years ago of a non ST elevation myocardial infarction and EBL for the procedure was 100 mL. Hemostasis was confirmed at the end of the procedure, and she was transferred for routine postoperative care. Approximately 12 hours after the procedure, she had an episode of hypotension. She had received Phenergan and narcotic pain medicine. She received a IV fluid bolus and the hypotension persisted. Her hemoglobin was 11.9 at the time of the hypotensive episode. Her hemoglobin preoperatively was 15.1, platelet count of 297,000. Due to the hemodynamic instability and hemoperitoneum diagnosed on bedside ultrasound, decision was made to proceed with laparoscopic evacuation of the hemoperitoneum to establish hemostasis with a possible laparotomy. This was discussed with the patient. Her was notified by phone, but only a voice message could be left at that time and she agreed to the procedure. DESCRIPTION OF PROCEDURE: With the patient in the dorsal lithotomy position, under adequate general endotracheal anesthesia, the abdomen was prepped with chlorhexidine. The perineum and vagina were prepped with Betadine and draped in usual fashion for laparoscopic surgery. SCDs were in place. Fitzpatrick catheter had been placed prior to the surgery and an appropriate time-out was held. She did receive 2 g of Ancef IV and a speculum examination revealed no significant bleeding vaginally. A sponge stick was placed in the vagina. Delivery Motorcycle Driver's gloves were changed. Attention was then turned to the abdomen. She had a prior abdominoplasty and prior umbilical hernia repair with mesh. Therefore, decision was made to proceed with a left upper quadrant incision. OG tube had been placed and was to suction, and 2 cm beneath the costal margin in the midclavicular line, a 5 mm incision was made with a scalpel. Veress needle was inserted. Opening pressure was 4 mmHg. CO2 was insufflated to develop an adequate pneumoperitoneum. A 5 mm port was placed and the laparoscope was placed through the abdominal cavity. There was no evidence of any trauma from the laparoscope placement site. The pelvis and abdomen were inspected, and initially there was a large amount of hemoperitoneum, dark red blood. Two additional ports were placed in the right and left lower quadrant under direct visualization. The clot was evacuated with a total of 1500 mL. The patient was placed in Trendelenburg position. The pelvis was copiously irrigated. There were no discrete areas of bleeding. The pedicle including the utero-ovarian pedicle, the pedicles of the broad ligament were all intact, and there was no active bleeding. Between the uterosacral ligament on the left and the lowest pedicle of the broad ligament, there was a small amount of bleeding that was cauterized. There was also some diffuse bleeding over the anterior cuff within 1 cm of the cuff and areas that were found to be bleeding slightly were coagulated. The pelvis was inspected under high and low pressure. There were no areas of active bleeding. Jean was placed. Inspection was continued for several minutes with no further bleeding. Therefore, the abdomen was desufflated. The port sites were removed. The skin was closed with a running subcuticular suture of 4-0 Monocryl and the sponge stick was removed and there was no blood on the sponge stick. Final sponge, needle, and instrument counts were reported as correct. There were no known complications. The patient was transferred to Recovery in good condition. CHARITY / HARPER /[id number]
--- NOTE | 2020-06-20 08:11 | PN ---
THC Physician - Brief Progress [id number]/26/2021 08:07[facility] Sadaf bailey, [place] - LONI (MICHAEL) - LONI SALAMANCAAVERY BAZZIJoaquin KovacsDate of Service 06/20/2020 08:07HPI/Even ts of Note 45 year old female with hemorrhagic shock postoperative to vaginal hystrectomy for menorrh agia.on camera alert and awake and [id number]/51,PR93,[id number],RR24/minHB11.9lactate 4.4plan:-tr end H/H-trend lactate-fluid boluse as needed-avoid antiHTN-SCD for DVT prophylasisInterventions Major -Hypovolemia - evaluation and treatment with fluids, Shock - evaluation and management
--- NOTE | 2020-06-20 09:08 | PN ---
THC Physician - Brief Progress [id number]/26/2021 09:07[facility] leoSadaf, MEDARDO - LONI (MICHAEL) - DICK CRANEDate of Service 06/20/2020 09:07HPI/Even ts of Note eICU Update NoteHold parameters placed for metoprolol per bedside request.Interventions Mi nor-Routine modifications to care plan (e.g. PRN medications for pain, fever)
[2020-06-20] MEDS: THYROID PORK 90 MG PO SCH (09:15)
[2020-06-20] MEDS: Acetaminophen/HYDROcodone 325-5 MG Tab PO PRN ×4 (09:20→22:06)
[2020-06-20] MEDS: Metoprolol Succinate 25 MG Tab.ER PO SCH (09:57)
[2020-06-20] MEDS: Acetaminophen 1,000 MG in Premix Bag 1 BAG IV PRN ×2 (10:38→16:39)
[2020-06-20 12:51] LABS: BLOOD UREA NITROGEN,BUN 20 mg/dL (7.0-18.0); CARBON DIOXIDE,CO2 26.7 mmol/L (21.0-32.0); CHLORIDE,CL 109 mmol/L (98-107); GLUCOSE RANDOM 112 mg/dL (74-106); POTASSIUM,K 4.7 mmol/L (3.5-5.1); SODIUM,NA 141 mmol/L (136-145)
--- NOTE | 2020-06-20 13:33 | PN ---
THC Physician - Brief Progress [id number]/26/2021 13:02[facility] Sadaf Valentin, MEDARDO - LONI (MICHAEL) - LONI SALAMANCADICK BAZZI FermínDate of Service 06/20/2020 13:02HPI/Even ts of Note eICU Update NoteAsked to review patient's case and make recommendations, specifically rega rding SBP in 90s, and drop in hemoglobin from 11.9 to 9.3.Briefly, patient is a 45 year old female wh o had underwent a vaginal hysterectomy on 06/19. Post-operatively course was complicated by hemoperito neum for which she was taken back to the OR, however no major sites of active bleeding were noted per review of operative report.Hemoglobin drop has occurred today AM, accompanied by a drop in SBP to 90 s, and development of tachycardia. Called over to discuss case, notified bedside physician is anayeli moore. Will defer further management to bedside, we are available to assist as desired.Interventions Sissy r-Hypotension - evaluation and management
[2020-06-20] MEDS ORDERED: Lactated Ringers 500 ML IV ONE ×2 (13:35→15:20)
--- NOTE | 2020-06-20 13:39 | PN ---
THC Physician - Brief Progress [id number]/26/2021 13:36[facility] [place] Sadaf bailey, [place] - LONI (MICHAEL) - LONI KNOWLESDICK HILL FermínDate of Service 06/20/2020 13:36HPI/Even ts of Note eICU Update NoteDiscussed case with RN regarding blood pressure.Per RN, patient is awake a nd alert, complains of some abdominal pain attributed to surgical incision. Abdomen is not distended per exam. She had trialed passive leg raise earlier, with improvement of SBP to 100s.pRBCs typed and crossed per report, repeat CBC planned for ~1600.Given improvement in blood pressure with PLR, patien t is likely fluid responsive. Will trial a 500cc bolus of LR and assess effect on blood pressures.Def er to User Experience Designer team regarding further procedural management.Interventions Major-Hemorrhage - evaluation an d management, Hypotension - evaluation and managementElectronically Signed by: MINNIE KHAN MD 06/20/2020 13:39
--- NOTE | 2020-06-20 15:28 | PN ---
THC Physician - Brief Progress [id number]/26/2021 14:39[facility] Sadaf bailey, MEDARD[place] - LONI (MICHAEL) - DICK CRANEDate of Service 06/20/2020 14:39HPI/Even ts of Note eICU Update NoteNotified patient more tachycardic despite IVF bolus, SBP still in 90s. Wale l order repeat CBC now.Interventions Major-Hypotension - evaluation and managementElectronically Sign ed by: MINNIE KHAN) on 06/20/2020 14:40
--- NOTE | 2020-06-20 15:28 | PN ---
THC Physician - Brief Progress [id number]/26/2021 15:22[facility] White Sadaf bailey, MEDARDO - LONI (MICHAEL) - DICK CRANEDate of Service 06/20/2020 15:22HPI/Even ts of Note eICU Update NoteRepeat CBC revealed stable hemoglobin. Will trial another 500cc LR bolus, and move next CBC to 1999.Interventions Major-Hypotension - evaluation and managementElectronically S igned by: MINNIE KHAN) on 06/20/2020 15:22
--- NOTE | 2020-06-20 17:33 | PCM.SURGPN ---
- General Info Date of Service: 06/20/20 Date of Surgery/Procedure: 06/19/20 POD#: 1 Post-Op Diagnosis: menorrhagia Functional Status: Reports: Pain Controlled, Tolerating Diet. Denies: Ambulating, Urinating (bhagat in plce) - Review of Systems General: Reports: Weakness HEENT: Reports: No Symptoms Pulmonary: Reports: No Symptoms Cardiovascular: Reports: Lightheadedness Gastrointestinal: Reports: No Symptoms Genitourinary: Reports: No Symptoms Musculoskeletal: Reports: No Symptoms Skin: Reports: No Symptoms Neurological: Reports: No Symptoms Psychiatric: Reports: No Symptoms - Patient Data Vitals - Most Recent: Last Vital Signs Temp 36.6 C 06/20/20 16:00 Pulse 110 H 06/20/20 16:00 Resp 19 06/20/20 16:00 BP 101/44 L 06/20/20 16:00 Pulse Ox 95 06/20/20 16:00 Weight - Most Recent: 68.039 kg I&O - Last 24 Hours: Intake & Output 06/20/20 06/20/20 06/20/20 06:59 14:59 22:59 Intake Total 5000 520 Output Total 100 1450 Balance 5000 -100 -930 Lab Results Last 24 Hrs: Laboratory Results - last 24 hr 06/19/20 06/19/20 06/20/20 Range/Units 10:56 10:56 00:30 WBC (4.0-11.0) K/uL RBC (4.30-5.90) M/uL Hgb (12.0-16.0) g/dL Hct (36.0-46.0) % MCV (80.0-98.0) fL MCH (27.0-32.0) pg MCHC (31.0-37.0) g/dL RDW Std Deviation (28.0-62.0) fl RDW Coeff of Iesha (11.0-15.0) % Plt Count (150-400) K/uL MPV (7.40-12.00) fL Neut % (Auto) (48.0-80.0) % Lymph % (Auto) (16.0-40.0) % [place] % (Auto) (0.0-15.0) % Eos % (Auto) (0.0-7.0) % Baso % (Auto) (0.0-1.5) % Neut # (Auto) (1.4-5.7) K/uL Lymph # (Auto) (0.6-2.4) K/uL [place] # (Auto) (0.0-0.8) K/uL Eos # (Auto) (0.0-0.7) K/uL Baso # (Auto) (0.0-0.1) K/uL Nucleated RBC % /100WBC Nucleated RBCs # K/uL INR APTT (18.6-31.3) SEC Fibrinogen (215-411) mg/dL Lactate (0.20-2.00) mmol/L Sodium (136-145) mmol/L Potassium (3.5-5.1) mmol/L Chloride (98-107) mmol/L Carbon Dioxide (21.0-32.0) mmol/L BUN (7.0-18.0) mg/dL Creatinine (0.6-1.0) mg/dL Est Cr Clr Drug Dosing mL/min Estimated GFR (MDRD) ml/min Glucose (74-106) mg/dL POC Glucose 243 H (60-110) mg/dL Calcium (8.5-10.1) mg/dL Total Bilirubin (0.2-1.0) mg/dL AST (15-37) IU/L ALT (14-63) IU/L Alkaline Phosphatase (46-116) U/L Troponin I (0.000-0.056) ng/mL Total Protein (6.4-8.2) g/dL Albumin (3.4-5.0) g/dL Globulin (2.6-4.0) g/dL Albumin/Globulin Ratio (0.9-1.6) Blood Type O NEGATIVE Antibody Screen NEGATIVE Crossmatch See Detail See Detail 06/20/20 06/20/20 06/20/20 Range/Units 00:56 01:40 02:39 WBC 13.80 H (4.0-11.0) K/uL RBC 3.61 L (4.30-5.90) M/uL Hgb 11.5 L (12.0-16.0) g/dL Hct 34.8 L (36.0-46.0) % MCV 96.4 (80.0-98.0) fL MCH 31.9 (27.0-32.0) pg MCHC 33.0 (31.0-37.0) g/dL RDW Std Deviation 45.3 (28.0-62.0) fl RDW Coeff of Iesha 13 (11.0-15.0) % Plt Count 297 (150-400) K/uL MPV 10.10 (7.40-12.00) fL Neut % (Auto) 80.5 H (48.0-80.0) % Lymph % (Auto) 12.1 L (16.0-40.0) % [place] % (Auto) 7.3 (0.0-15.0) % Eos % (Auto) 0.0 (0.0-7.0) % Baso % (Auto) 0.1 (0.0-1.5) % Neut # (Auto) 11.1 H (1.4-5.7) K/uL Lymph # (Auto) 1.7 (0.6-2.4) K/uL [place] # (Auto) 1.0 H (0.0-0.8) K/uL Eos # (Auto) 0.0 (0.0-0.7) K/uL Baso # (Auto) 0.0 (0.0-0.1) K/uL Nucleated RBC % 0.0 /100WBC Nucleated RBCs # 0 K/uL INR APTT (18.6-31.3) SEC Fibrinogen (215-411) mg/dL Lactate (0.20-2.00) mmol/L Sodium 139 (136-145) mmol/L Potassium 4.3 (3.5-5.1) mmol/L Chloride 105 (98-107) mmol/L Carbon Dioxide 25.8 (21.0-32.0) mmol/L BUN 27 H (7.0-18.0) mg/dL Creatinine 1.0 (0.6-1.0) mg/dL Est Cr Clr Drug Dosing 69.09 mL/min Estimated GFR (MDRD) 60.0 ml/min Glucose 236 H (74-106) mg/dL POC Glucose 236 H (60-110) mg/dL Calcium 7.8 L (8.5-10.1) mg/dL Total Bilirubin 0.5 (0.2-1.0) mg/dL AST 7 L (15-37) IU/L ALT 15 (14-63) IU/L Alkaline Phosphatase 45 L (46-116) U/L Troponin I (0.000-0.056) ng/mL Total Protein 4.9 L (6.4-8.2) g/dL Albumin 2.7 L (3.4-5.0) g/dL Globulin 2.2 L (2.6-4.0) g/dL Albumin/Globulin Ratio 1.2 (0.9-1.6) Blood Type Antibody Screen Crossmatch 06/20/20 06/20/20 06/20/20 Range/Units 02:54 03:53 05:44 WBC 15.75 H (4.0-11.0) K/uL RBC 3.84 L (4.30-5.90) M/uL Hgb 11.9 L (12.0-16.0) g/dL Hct 36.4 (36.0-46.0) % MCV 94.8 (80.0-98.0) fL MCH 31.0 (27.0-32.0) pg MCHC 32.7 (31.0-37.0) g/dL RDW Std Deviation 48.3 (28.0-62.0) fl RDW Coeff of Iesha 14 (11.0-15.0) % Plt Count 174 (150-400) K/uL MPV 9.60 (7.40-12.00) fL Neut % (Auto) 80.9 H (48.0-80.0) % Lymph % (Auto) 9.0 L (16.0-40.0) % [place] % (Auto) 10.0 (0.0-15.0) % Eos % (Auto) 0.0 (0.0-7.0) % Baso % (Auto) 0.1 (0.0-1.5) % Neut # (Auto) 12.8 H (1.4-5.7) K/uL Lymph # (Auto) 1.4 (0.6-2.4) K/uL [place] # (Auto) 1.6 H (0.0-0.8) K/uL Eos # (Auto) 0.0 (0.0-0.7) K/uL Baso # (Auto) 0.0 (0.0-0.1) K/uL Nucleated RBC % 0.0 /100WBC Nucleated RBCs # 0 K/uL INR APTT (18.6-31.3) SEC Fibrinogen (215-411) mg/dL Lactate 4.4 H* (0.20-2.00) mmol/L Sodium (136-145) mmol/L Potassium (3.5-5.1) mmol/L Chloride (98-107) mmol/L Carbon Dioxide (21.0-32.0) mmol/L BUN (7.0-18.0) mg/dL Creatinine (0.6-1.0) mg/dL Est Cr Clr Drug Dosing mL/min Estimated GFR (MDRD) ml/min Glucose (74-106) mg/dL POC Glucose (60-110) mg/dL Calcium (8.5-10.1) mg/dL Total Bilirubin (0.2-1.0) mg/dL AST (15-37) IU/L ALT (14-63) IU/L Alkaline Phosphatase (46-116) U/L Troponin I < 0.050 (0.000-0.056) ng/mL Total Protein (6.4-8.2) g/dL Albumin (3.4-5.0) g/dL Globulin (2.6-4.0) g/dL Albumin/Globulin Ratio (0.9-1.6) Blood Type Antibody Screen Crossmatch 06/20/20 06/20/20 06/20/20 Range/Units 05:44 05:44 05:44 WBC (4.0-11.0) K/uL RBC (4.30-5.90) M/uL Hgb (12.0-16.0) g/dL Hct (36.0-46.0) % MCV (80.0-98.0) fL MCH (27.0-32.0) pg MCHC (31.0-37.0) g/dL RDW Std Deviation (28.0-62.0) fl RDW Coeff of Iesha (11.0-15.0) % Plt Count (150-400) K/uL MPV (7.40-12.00) fL Neut % (Auto) (48.0-80.0) % Lymph % (Auto) (16.0-40.0) % [place] % (Auto) (0.0-15.0) % Eos % (Auto) (0.0-7.0) % Baso % (Auto) (0.0-1.5) % Neut # (Auto) (1.4-5.7) K/uL Lymph # (Auto) (0.6-2.4) K/uL [place] # (Auto) (0.0-0.8) K/uL Eos # (Auto) (0.0-0.7) K/uL Baso # (Auto) (0.0-0.1) K/uL Nucleated RBC % /100WBC Nucleated RBCs # K/uL INR 1.24 APTT (18.6-31.3) SEC Fibrinogen 218 (215-411) mg/dL Lactate (0.20-2.00) mmol/L Sodium 141 (136-145) mmol/L Potassium 5.0 (3.5-5.1) mmol/L Chloride 107 (98-107) mmol/L Carbon Dioxide 23.8 (21.0-32.0) mmol/L BUN 26 H (7.0-18.0) mg/dL Creatinine 1.2 H (0.6-1.0) mg/dL Est Cr Clr Drug Dosing 57.57 mL/min Estimated GFR (MDRD) 48.6 ml/min Glucose 195 H (74-106) mg/dL POC Glucose (60-110) mg/dL Calcium 7.7 L (8.5-10.1) mg/dL Total Bilirubin (0.2-1.0) mg/dL AST (15-37) IU/L ALT (14-63) IU/L Alkaline Phosphatase (46-116) U/L Troponin I (0.000-0.056) ng/mL Total Protein (6.4-8.2) g/dL Albumin (3.4-5.0) g/dL Globulin (2.6-4.0) g/dL Albumin/Globulin Ratio (0.9-1.6) Blood Type Antibody Screen Crossmatch 06/20/20 06/20/20 06/20/20 Range/Units 08:38 08:38 11:55 WBC 8.51 (4.0-11.0) K/uL RBC 3.06 L (4.30-5.90) M/uL Hgb 9.3 L (12.0-16.0) g/dL Hct 28.1 L (36.0-46.0) % MCV 91.8 (80.0-98.0) fL MCH 30.4 (27.0-32.0) pg MCHC 33.1 (31.0-37.0) g/dL RDW Std Deviation 48.3 (28.0-62.0) fl RDW Coeff of Iesha 15 (11.0-15.0) % Plt Count 157 (150-400) K/uL MPV 9.10 (7.40-12.00) fL Neut % (Auto) 66.4 (48.0-80.0) % Lymph % (Auto) 21.6 (16.0-40.0) % [place] % (Auto) 11.9 (0.0-15.0) % Eos % (Auto) 0.0 (0.0-7.0) % Baso % (Auto) 0.1 (0.0-1.5) % Neut # (Auto) 5.7 (1.4-5.7) K/uL Lymph # (Auto) 1.8 (0.6-2.4) K/uL [place] # (Auto) 1.0 H (0.0-0.8) K/uL Eos # (Auto) 0.0 (0.0-0.7) K/uL Baso # (Auto) 0.0 (0.0-0.1) K/uL Nucleated RBC % 0.0 /100WBC Nucleated RBCs # 0 K/uL INR APTT (18.6-31.3) SEC Fibrinogen (215-411) mg/dL Lactate 2.7 H* (0.20-2.00) mmol/L Sodium (136-145) mmol/L Potassium (3.5-5.1) mmol/L Chloride (98-107) mmol/L Carbon Dioxide (21.0-32.0) mmol/L BUN (7.0-18.0) mg/dL Creatinine (0.6-1.0) mg/dL Est Cr Clr Drug Dosing mL/min Estimated GFR (MDRD) ml/min Glucose (74-106) mg/dL POC Glucose (60-110) mg/dL Calcium (8.5-10.1) mg/dL Total Bilirubin (0.2-1.0) mg/dL AST (15-37) IU/L ALT (14-63) IU/L Alkaline Phosphatase (46-116) U/L Troponin I < 0.050 (0.000-0.056) ng/mL Total Protein (6.4-8.2) g/dL Albumin (3.4-5.0) g/dL Globulin (2.6-4.0) g/dL Albumin/Globulin Ratio (0.9-1.6) Blood Type Antibody Screen Crossmatch 06/20/20 06/20/20 06/20/20 Range/Units 11:55 11:55 11:55 WBC (4.0-11.0) K/uL RBC (4.30-5.90) M/uL Hgb (12.0-16.0) g/dL Hct (36.0-46.0) % MCV (80.0-98.0) fL MCH (27.0-32.0) pg MCHC (31.0-37.0) g/dL RDW Std Deviation (28.0-62.0) fl RDW Coeff of Iesha (11.0-15.0) % Plt Count (150-400) K/uL MPV (7.40-12.00) fL Neut % (Auto) (48.0-80.0) % Lymph % (Auto) (16.0-40.0) % [place] % (Auto) (0.0-15.0) % Eos % (Auto) (0.0-7.0) % Baso % (Auto) (0.0-1.5) % Neut # (Auto) (1.4-5.7) K/uL Lymph # (Auto) (0.6-2.4) K/uL [place] # (Auto) (0.0-0.8) K/uL Eos # (Auto) (0.0-0.7) K/uL Baso # (Auto) (0.0-0.1) K/uL Nucleated RBC % /100WBC Nucleated RBCs # K/uL INR APTT 23.9 (18.6-31.3) SEC Fibrinogen 234 (215-411) mg/dL Lactate 1.2 (0.20-2.00) mmol/L Sodium 141 (136-145) mmol/L Potassium 4.7 (3.5-5.1) mmol/L Chloride 109 H (98-107) mmol/L Carbon Dioxide 26.7 (21.0-32.0) mmol/L BUN 20 H (7.0-18.0) mg/dL Creatinine 0.9 (0.6-1.0) mg/dL Est Cr Clr Drug Dosing 76.76 mL/min Estimated GFR (MDRD) > 60.0 ml/min Glucose 112 H (74-106) mg/dL POC Glucose (60-110) mg/dL Calcium 7.8 L (8.5-10.1) mg/dL Total Bilirubin 0.7 (0.2-1.0) mg/dL AST 14 L (15-37) IU/L ALT 18 (14-63) IU/L Alkaline Phosphatase 37 L (46-116) U/L Troponin I (0.000-0.056) ng/mL Total Protein 4.1 L (6.4-8.2) g/dL Albumin 2.3 L (3.4-5.0) g/dL Globulin 1.8 L (2.6-4.0) g/dL Albumin/Globulin Ratio 1.3 (0.9-1.6) Blood Type Antibody Screen Crossmatch 06/20/20 Range/Units 14:53 WBC 7.63 (4.0-11.0) K/uL RBC 2.88 L (4.30-5.90) M/uL Hgb 9.0 L (12.0-16.0) g/dL Hct 26.2 L (36.0-46.0) % MCV 91.0 (80.0-98.0) fL MCH 31.3 (27.0-32.0) pg MCHC 34.4 (31.0-37.0) g/dL RDW Std Deviation 47.9 (28.0-62.0) fl RDW Coeff of Iesah 15 (11.0-15.0) % Plt Count 150 (150-400) K/uL MPV 9.20 (7.40-12.00) fL Neut % (Auto) (48.0-80.0) % Lymph % (Auto) (16.0-40.0) % [place] % (Auto) (0.0-15.0) % Eos % (Auto) (0.0-7.0) % Baso % (Auto) (0.0-1.5) % Neut # (Auto) (1.4-5.7) K/uL Lymph # (Auto) (0.6-2.4) K/uL [place] # (Auto) (0.0-0.8) K/uL Eos # (Auto) (0.0-0.7) K/uL Baso # (Auto) (0.0-0.1) K/uL Nucleated RBC % 0.0 /100WBC Nucleated RBCs # 0 K/uL INR APTT (18.6-31.3) SEC Fibrinogen (215-411) mg/dL Lactate (0.20-2.00) mmol/L Sodium (136-145) mmol/L Potassium (3.5-5.1) mmol/L Chloride (98-107) mmol/L Carbon Dioxide (21.0-32.0) mmol/L BUN (7.0-18.0) mg/dL Creatinine (0.6-1.0) mg/dL Est Cr Clr Drug Dosing mL/min Estimated GFR (MDRD) ml/min Glucose (74-106) mg/dL POC Glucose (60-110) mg/dL Calcium (8.5-10.1) mg/dL Total Bilirubin (0.2-1.0) mg/dL AST (15-37) IU/L ALT (14-63) IU/L Alkaline Phosphatase (46-116) U/L Troponin I (0.000-0.056) ng/mL Total Protein (6.4-8.2) g/dL Albumin (3.4-5.0) g/dL Globulin (2.6-4.0) g/dL Albumin/Globulin Ratio (0.9-1.6) Blood Type Antibody Screen Crossmatch Med Orders - Current: Current Medications Hydrocodone Bitart/Acetaminophen (Gordon 325-5 Mg) 1 tab PO Q4H PRN PRN Reason: Abdominal Pain Last Admin: 06/20/20 13:23 Dose: 1 tab Documented by: Acetaminophen 1,000 mg/ Premix 100 mls @ 400 mls/hr IV Q6H PRN PRN Reason: Pain Last Admin: 06/20/20 16:39 Dose: 400 mls/hr Documented by: Lactated Ringer's (Ringers, Lactated) 1,000 mls @ 125 mls/hr IV ASDIRECTED [facility] Last Admin: 06/20/20 15:15 Dose: 125 mls/hr Documented by: Metoprolol Succinate (Toprol Xl) 25 mg PO [facility] Last Admin: 06/20/20 09:57 Dose: Not Given Documented by: Morphine Sulfate (Morphine) 4 mg IVPUSH Q2H PRN PRN Reason: Pain (severe 7-10) Last Admin: 06/20/20 00:42 Dose: 4 mg Documented by: Naloxone HCl (Narcan) 0.1 mg IVPUSH ASDIRECTED PRN PRN Reason: Respiratory Depression Ondansetron HCl (Zofran) 4 mg IVPUSH Q4H PRN PRN Reason: Nausea Last Admin: 06/19/20 23:30 Dose: 4 mg Documented by: Ondansetron HCl (Zofran) 4 mg IVPUSH Q6H PRN PRN Reason: Nausea/Vomiting Thyroid,Pork [Shaker Tender (Thyroid] 90 Mg) 1.5 each PO [facility] Last Admin: 06/20/20 09:15 Dose: 1.5 each Documented by: Promethazine HCl (Phenergan) 25 mg IM Q6H PRN PRN Reason: Nausea/Vomiting Last Admin: 06/20/20 01:08 Dose: 25 mg Documented by: Discontinued Medications Albuterol (Proventil Neb Soln) 2.5 mg NEB ONETIME PRN PRN Reason: Wheezing Atropine Sulfate (Atropine 0.1 Mg/Ml) 0.5 mg IVPUSH ASDIRECTED PRN PRN Reason: Hypo-perfusion Atropine Sulfate (Atropine 0.1 Mg/Ml) 1 mg IVPUSH ASDIRECTED PRN PRN Reason: Hypo-Perfusion Bupivacaine HCl (Sensorcaine-Mpf 0.25%) Confirm Administered Dose 20 ml .ROUTE .STK-MED ONE Stop: 06/20/20 04:18 Calcium Gluconate (Calcium Gluconate) 1 gm IV ONETIME ONE Stop: 06/20/20 03:16 Last Admin: 06/20/20 03:37 Dose: 1 gm Documented by: Cefazolin Sodium (Ancef) Confirm Administered Dose 2 gm .ROUTE .STK-MED ONE Stop: 06/19/20 10:34 Dexamethasone (Dexamethasone) Confirm Administered Dose 20 mg .ROUTE .STK-MED ONE Stop: 06/19/20 10:38 Dextrose/Water (Dextrose 50% In Water) 50 ml IVPUSH ASDIRECTED PRN PRN Reason: Hypoglycemia Enoxaparin Sodium (Lovenox) 30 mg SUBCUT ONETIME ONE Stop: 06/19/20 06:32 Last Admin: 06/19/20 10:51 Dose: 30 mg Documented by: Epinephrine HCl (Epinephrine 1:10,000) 1 mg IVPUSH ASDIRECTED PRN PRN Reason: ACLS Guidelines Fentanyl (Sublimaze) Confirm Administered Dose 250 mcg .ROUTE .STK-MED ONE Stop: 06/19/20 07:22 Fentanyl (Sublimaze) 50 mcg IVPUSH Q5M PRN PRN Reason: Pain Fentanyl (Sublimaze) Confirm Administered Dose 250 mcg .ROUTE .STK-MED ONE Stop: 06/19/20 12:19 Fentanyl (Sublimaze) Confirm Administered Dose 250 mcg .ROUTE .STK-MED ONE Stop: 06/20/20 03:38 Fentanyl (Sublimaze) 50 - 100 mcg IVPUSH Q5M PRN PRN Reason: Pain Fluorescein Sodium (Ak-Fluor) Confirm Administered Dose 5 ml .ROUTE .STK-MED ONE Stop: 06/19/20 09:48 Glycopyrrolate (Robinul) Confirm Administered Dose 0.8 mg .ROUTE .STK-MED ONE Stop: 06/19/20 07:22 Glycopyrrolate (Robinul) Confirm Administered Dose 0.2 mg .ROUTE .STK-MED ONE Stop: 06/20/20 05:14 Hydromorphone HCl (Dilaudid) Confirm Administered Dose 2 mg .ROUTE .STK-MED ONE Stop: 06/19/20 13:20 Last Admin: 06/19/20 15:08 Dose: Not Given Documented by: Hydromorphone HCl (Dilaudid) 2 mg IVPUSH ONETIME ONE Stop: 06/19/20 13:21 Last Admin: 06/19/20 13:20 Dose: 2 mg Documented by: Lactated Ringer's (Ringers, Lactated) 1,000 mls @ 100 mls/hr IV ASDIRECTED [facility] Last Infusion: 06/19/20 20:40 Dose: Infused Documented by: Sodium Chloride (Normal Saline) Confirm Administered Dose 20 mls @ as directed .ROUTE .STK-MED ONE Stop: 06/19/20 10:34 Lactated Ringer's (Ringers, Lactated) 1,000 mls @ 999 mls/hr IV .BOLUS ONE Stop: 06/20/20 01:39 Last Admin: 06/20/20 02:56 Dose: 999 mls/hr Documented by: Sodium Chloride (Normal Saline) 1,000 mls @ 999 mls/hr IV BOLUS SIXTO Lactated Ringer's (Ringers, Lactated) 1,000 mls @ 999 mls/hr IV .BOLUS ONE Stop: 06/20/20 03:48 Last Admin: 06/20/20 03:10 Dose: 999 mls/hr Documented by: Lactated Ringer's (Ringers, Lactated) 500 mls @ 999 mls/hr IV .BOLUS ONE Stop: 06/20/20 14:05 Last Admin: 06/20/20 13:52 Dose: 999 mls/hr Documented by: Lactated Ringer's (Ringers, Lactated) 500 mls @ 999 mls/hr IV .BOLUS ONE Stop: 06/20/20 15:50 Last Admin: 06/20/20 15:33 Dose: 999 mls/hr Documented by: Ketorolac Tromethamine (Toradol) Confirm Administered Dose 30 mg .ROUTE .STK-MED ONE Stop: 06/19/20 07:22 Lidocaine (Xylocaine-Mpf 2%) Confirm Administered Dose 5 ml .ROUTE .STK-MED ONE Stop: 06/19/20 07:22 Lidocaine (Xylocaine-Mpf 2%) Confirm Administered Dose 5 ml .ROUTE .STK-MED ONE Stop: 06/20/20 03:39 Midazolam HCl (Versed 1 Mg/Ml) Confirm Administered Dose 2 mg .ROUTE .STK-MED ONE Stop: 06/19/20 07:22 Midazolam HCl (Versed 1 Mg/Ml) Confirm Administered Dose 2 mg .ROUTE .STK-MED ONE Stop: 06/20/20 03:38 Ondansetron HCl (Zofran) Confirm Administered Dose 4 mg .ROUTE .STK-MED ONE Stop: 06/19/20 07:22 Ondansetron HCl (Zofran) 4 mg IVPUSH Q6H PRN PRN Reason: Nausea/Vomiting Last Admin: 06/19/20 18:42 Dose: 4 mg Documented by: Ondansetron HCl (Zofran) Confirm Administered Dose 4 mg .ROUTE .STK-MED ONE Stop: 06/20/20 05:14 Oxycodone/Acetaminophen (Percocet 325-5 Mg) 1 tab PO Q4H PRN PRN Reason: Pain (moderate 4-6) Oxycodone/Acetaminophen (Percocet 325-5 Mg) 2 tab PO Q4H PRN PRN Reason: Pain (moderate 4-6) Last Admin: 06/19/20 18:15 Dose: 2 tab Documented by: Oxycodone/Acetaminophen (Percocet 325-5 Mg) 1 tab PO Q4H PRN PRN Reason: Pain (moderate 4-6) Oxycodone/Acetaminophen (Percocet 325-5 Mg) 2 tab PO Q4H PRN PRN Reason: Pain (moderate 4-6) Propofol (Diprivan 20 Ml) Confirm Administered Dose 200 mg .ROUTE .STK-MED ONE Stop: 06/19/20 07:22 Propofol (Diprivan 20 Ml) Confirm Administered Dose 200 mg .ROUTE .STK-MED ONE Stop: 06/20/20 03:38 Rocuronium Mcconnell (Rocuronium Mcconnell) Confirm Administered Dose 50 mg .ROUTE .STK-MED ONE Stop: 06/19/20 07:22 Rocuronium Mcconnell (Rocuronium Mcconnell) Confirm Administered Dose 50 mg .ROUTE .STK-MED ONE Stop: 06/20/20 03:38 - Exam Wound/Incisions: Dressing Dry and Intact General: Alert, Oriented Neck: Supple Lungs: Normal Respiratory Effort GI/Abdominal Exam: Soft, Non-Tender Extremities: No: No Pedal Edema (trace) Skin: Warm, Dry, Intact Sepsis Event Note - Evaluation Sepsis Screening Result: Severe Sepsis Risk - Focused Exam Vital Signs: Vital Signs Temp Pulse Resp BP Pulse Ox 06/20/20 16:00 36.6 C 110 H 19 101/44 L 95 06/20/20 15:00 37.4 C 105 H 18 98/42 L 94 L 06/20/20 14:00 36.8 C 102 H 16 100/37 L 98 06/20/20 13:00 36.7 C 100 16 91/34 L 98 06/20/20 12:00 37.6 C 95 14 91/34 L 98 06/20/20 11:00 37.5 C 100 15 91/34 L 98 06/20/20 10:00 37.5 C 103 H 15 89/36 L 96 06/20/20 09:00 36.8 C 108 H 14 93/37 L 98 06/20/20 08:00 36.8 C 91 16 102/37 L 97 06/20/20 07:00 37.6 C 87 16 96/38 L 99 06/20/20 06:42 85 14 94/42 L 99 06/20/20 06:36 85 14 100/39 L 98 06/20/20 06:31 83 14 102/47 L 99 06/20/20 06:27 88 20 98/41 L 100 06/20/20 06:21 81 15 104/44 L 100 06/20/20 06:16 80 20 104/49 L 100 06/20/20 06:11 77 16 102/36 L 100 06/20/20 06:06 74 14 105/46 L 100 06/20/20 06:01 86 20 108/43 L 100 06/20/20 05:52 79 14 109/47 L 100 06/20/20 05:47 86 14 99/38 L 100 06/20/20 05:44 78 14 108/47 L 100 06/20/20 05:42 85 18 108/55 L 100 06/20/20 05:36 36.3 C 91 18 89/30 L 100 - Problem List & Annotations (1) Menorrhagia SNOMED Code(s): 614717888 Code(s): N92.0 - EXCESSIVE AND FREQUENT MENSTRUATION WITH REGULAR CYCLE Status: Acute Current Visit: Yes (2) Postoperative hemorrhage SNOMED Code(s): 672641463 Code(s): EAT1212 - Status: Acute Current Visit: Yes Qualifiers: Surgical complication system/body Area: genitourinary Procedure type: genitourinary Qualified Code(s): N99.820 - Postprocedural hemorrhage of a genitourinary system organ or structure following a genitourinary system procedure - Problem List Review Problem List Initiated/Reviewed/Updated: Yes - My Orders Last 24 Hours: Active Orders 24 hr Category Date Time Status Patient Status [ADT] Routine ADT 06/20/20 05:53 Active Antiembolic Devices [RC] Q12H Care 06/20/20 05:54 Active Blood Glucose Check, Bedside [RC] PRN Care 06/20/20 04:40 Active EKG Documentation Completion [RC] STAT Care 06/20/20 01:10 Active Notify Provider Vital Signs [RC] ASDIRECTED Care 06/20/20 04:40 Active Notify Provider Vital Signs [RC] ASDIRECTED Care 06/20/20 05:53 Active Oxygen Therapy [RC] ASDIRECTED Care 06/20/20 05:53 Active Oxygen Therapy [RC] PRN Care 06/20/20 04:40 Active RT Aerosol Therapy [RC] ASDIRECTED Care 06/20/20 04:40 Active RT Aerosol Therapy [RC] ASDIRECTED Care 06/20/20 04:40 Active RT Aerosol Therapy [RC] ASDIRECTED Care 06/20/20 04:40 Active RT Incentive Spirometry [RC] Q2HWA Care 06/20/20 05:53 Active Up With Assistance [RC] PER UNIT ROUTINE Care 06/20/20 05:53 Active Up ad Aliyah [RC] PER UNIT ROUTINE Care 06/20/20 05:53 Active Urinary Catheter Removal [RC] Per Unit Routine Care 06/20/20 05:53 Active Vital Signs [RC] PER UNIT ROUTINE Care 06/20/20 05:53 Active Vital Signs [RC] Q5M Care 06/20/20 04:40 Active CBC WITH AUTO DIFF [HEME] Routine Lab 06/20/20 20:00 Ordered COMPREHENSIVE METABOLIC PN,CMP [CHEM] Routine Lab 06/20/20 20:00 Ordered CULTURE BLOOD [BC] Stat Lab 06/20/20 11:55 Received CULTURE BLOOD [BC] Stat Lab 06/20/20 12:05 Received FRESH FROZEN PLASMA [BBK] Stat Lab 06/20/20 04:41 Results PACKED CELLS [RED BLOOD CELLS LP] [BBK] Routine Lab 06/20/20 02:52 Results TSH [CHEM] Routine Lab 06/20/20 20:00 Ordered Acetaminophen/HYDROcodone [Gordon 325-5 MG] Med 06/20/20 07:21 Active 1 tab PO Q4H PRN Lactated Ringers [Ringers, Lactated] 1,000 ml Med 06/20/20 01:15 Active IV ASDIRECTED Metoprolol Succinate [Toprol XL] Med 06/20/20 09:00 Active 25 mg PO QAM Naloxone [Narcan] Med 06/20/20 04:40 Active 0.1 mg IVPUSH ASDIRECTED PRN Ondansetron [Zofran] Med 06/19/20 23:22 Active 4 mg IVPUSH Q4H PRN Ondansetron [Zofran] Med 06/20/20 05:52 Active 4 mg IVPUSH Q6H PRN Patient's Own Medication [Ptom] Med 06/20/20 09:00 Active 1.5 each PO QAM Blood Culture x2 Reflex Set [OM.PC] Stat Ot 06/20/20 12:00 Ordered Peripheral IV Discontinue [OM.PC] Routine Ot 06/20/20 05:53 Ordered Sequential Compression Device [OM.PC] Per Unit Routine Ot 06/20/20 05:53 Ordered Transfuse PRBC [Transfuse Red Blood Cells] [COMM] Ot 06/20/20 02:58 Ordered Routine Medication Orders Hydrocodone Bitart/Acetaminophen (Gordon 325-5 Mg) 1 tab PO Q4H PRN PRN Reason: Abdominal Pain Last Admin: 06/20/20 13:23 Dose: 1 tab Documented by: Admin: 06/20/20 09:20 Dose: 1 tab Documented by: KHAI Acetaminophen 1,000 mg/ Premix 100 mls @ 400 mls/hr IV Q6H PRN PRN Reason: Pain Last Admin: 06/20/20 16:39 Dose: 400 mls/hr Documented by: Infusion: 06/20/20 10:53 Dose: 400 mls/hr Documented by: Admin: 06/20/20 10:38 Dose: 400 mls/hr Documented by: Infusion: 06/19/20 13:25 Dose: 400 mls/hr Documented by: Admin: 06/19/20 13:10 Dose: 400 mls/hr Documented by: LUIS Lactated Ringer's (Ringers, Lactated) 1,000 mls @ 125 mls/hr IV ASDIRECTED SIXTO Last Admin: 06/20/20 15:15 Dose: 125 mls/hr Documented by: Infusion: 06/20/20 15:15 Dose: 125 mls/hr Documented by: Admin: 06/20/20 10:13 Dose: 125 mls/hr Documented by: Infusion: 06/20/20 09:21 Dose: 125 mls/hr Documented by: Admin: 06/20/20 01:21 Dose: 125 mls/hr Documented by: REYES Metoprolol Succinate ([facility]rol Xl) [facility] [place] Last Admin: 06/20/20 09:57 Dose: Not Given Documented by: KHAI Morphine Sulfate (Morphine) 4 mg IVPUSH Q2H PRN PRN Reason: Pain (severe 7-10) Last Admin: 06/20/20 00:42 Dose: 4 mg Documented by: COURTENY Naloxone HCl (Narcan) 0.1 mg IVPUSH ASDIRECTED PRN PRN Reason: Respiratory Depression Ondansetron HCl (Zofran) 4 mg IVPUSH Q4H PRN PRN Reason: Nausea Last Admin: 06/19/20 23:30 Dose: 4 mg Documented by: REYES Ondansetron HCl (Zofran) 4 mg IVPUSH Q6H PRN PRN Reason: Nausea/Vomiting Thyroid,Pork [Shaker Tender (Thyroid] 90 Mg) 1.5 each PO [facility] Last Admin: 06/20/20 09:15 Dose: 1.5 each Documented by: KHAI Promethazine HCl (Phenergan) 25 mg IM Q6H PRN PRN Reason: Nausea/Vomiting Last Admin: 06/20/20 01:08 Dose: 25 mg Documented by: Admin: 06/19/20 13:55 Dose: 25 mg Documented by: ANEESHIF - Assessment Assessment (Free Text/Narrative):: POD#1 after TVH, performed under anticoagulation due to personal history of NONSTEMI, off clopidogrel for 5 days preop and also off aspirin for 10 days preop. complicated by postoperative hemorrhage approximately 12 hours postoperatively. POD#0 after laparoscopic evacuation of hemoperitoneum 1500 ml and establishment of hemostasis, with only finding of diffuse small amount of bleeding anterior cuff and just above right uterosacral ligament. Anemia, appropriate for blood loss and replacement (1500 ml EBL, given 3 U PRBC and 2 U FFP) Hypotension is improving with fluid boluses, normal urine output - Plan Plan (Free Text/Narrative):: See also EICU notes Continue IV fluids and bhagat catheter tonight Due to hypothyroidism, will check TSH. Recheck CBC at 8 pm per EICU Consider ambulation in am. Pain well controlled with Gordon/ heating pad and abdominal binder. Continue regular diet and postoperative care.
[2020-06-20 21:05] LABS: BLOOD UREA NITROGEN,BUN 16 mg/dL (7.0-18.0); CARBON DIOXIDE,CO2 29.2 mmol/L (21.0-32.0); CHLORIDE,CL 111 mmol/L (98-107); GLUCOSE RANDOM 126 mg/dL (74-106); SODIUM,NA 144 mmol/L (136-145)
[2020-06-21] MEDS: Lactated Ringers 1,000 ML IV SCH (04:22)
[2020-06-21] MEDS: Acetaminophen/HYDROcodone 325-5 MG Tab PO PRN ×4 (04:23→18:12)
--- NOTE | 2020-06-21 07:51 | PCM48HPAN ---
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 Pt. reports feeling better and her pain is better.
--- NOTE | 2020-06-21 08:05 | PCM.SURGPN ---
- General Info Date of Service: 06/21/20 Date of Surgery/Procedure: 06/19/20 POD#: 2 Post-Op Diagnosis: menorrhagia, complicated by posterative hemorrhage Admission Diagnosis/Problem: Menorrhagia Functional Status: Reports: Pain Controlled, Tolerating Diet. Denies: Ambulating (no up to chair yet), Urinating (catheter in place) - Review of Systems General: Reports: Weakness, Fatigue HEENT: Reports: No Symptoms Pulmonary: Reports: No Symptoms Cardiovascular: Reports: No Symptoms Gastrointestinal: Reports: No Symptoms Genitourinary: Reports: No Symptoms Musculoskeletal: Reports: No Symptoms Skin: Reports: No Symptoms Neurological: Reports: No Symptoms Psychiatric: Reports: No Symptoms - Patient Data Vitals - Most Recent: Last Vital Signs Temp 36.4 C 06/21/20 04:00 Pulse 96 06/20/20 19:00 Resp 18 06/21/20 05:00 BP 98/40 L 06/21/20 05:00 Pulse Ox 96 06/21/20 05:00 Weight - Most Recent: 68.039 kg I&O - Last 24 Hours: Intake & Output 06/20/20 06/21/20 06/21/20 22:59 06:59 14:59 Intake Total 2370 2457 Output Total 1450 2075 Balance 920 382 Lab Results Last 24 Hrs: Laboratory Results - last 24 hr 06/19/20 06/19/20 06/20/20 Range/Units 10:56 10:56 08:20 WBC 7.08 (4.0-11.0) K/uL RBC 2.61 L (4.30-5.90) M/uL Hgb 8.1 L (12.0-16.0) g/dL Hct 23.9 L (36.0-46.0) % MCV 91.6 (80.0-98.0) fL MCH 31.0 (27.0-32.0) pg MCHC 33.9 (31.0-37.0) g/dL RDW Std Deviation 48.9 (28.0-62.0) fl RDW Coeff of Iesha 15 (11.0-15.0) % Plt Count 145 L (150-400) K/uL MPV 9.00 (7.40-12.00) fL Neut % (Auto) 58.6 (48.0-80.0) % Lymph % (Auto) 28.2 (16.0-40.0) % Bucks % (Auto) 13.0 (0.0-15.0) % Eos % (Auto) 0.1 (0.0-7.0) % Baso % (Auto) 0.1 (0.0-1.5) % Neut # (Auto) 4.1 (1.4-5.7) K/uL Lymph # (Auto) 2.0 (0.6-2.4) K/uL Bucks # (Auto) 0.9 H (0.0-0.8) K/uL Eos # (Auto) 0.0 (0.0-0.7) K/uL Baso # (Auto) 0.0 (0.0-0.1) K/uL Nucleated RBC % 0.0 /100WBC Nucleated RBCs # 0 K/uL APTT (18.6-31.3) SEC Fibrinogen (215-411) mg/dL Lactate (0.20-2.00) mmol/L Sodium (136-145) mmol/L Potassium (3.5-5.1) mmol/L Chloride (98-107) mmol/L Carbon Dioxide (21.0-32.0) mmol/L BUN (7.0-18.0) mg/dL Creatinine (0.6-1.0) mg/dL Est Cr Clr Drug Dosing mL/min Estimated GFR (MDRD) ml/min Glucose (74-106) mg/dL Calcium (8.5-10.1) mg/dL Total Bilirubin (0.2-1.0) mg/dL AST (15-37) IU/L ALT (14-63) IU/L Alkaline Phosphatase (46-116) U/L Troponin I (0.000-0.056) ng/mL Total Protein (6.4-8.2) g/dL Albumin (3.4-5.0) g/dL Globulin (2.6-4.0) g/dL Albumin/Globulin Ratio (0.9-1.6) TSH 3rd Generation (0.36-3.74) uIU/mL Blood Type O NEGATIVE Antibody Screen NEGATIVE Crossmatch See Detail See Detail 06/20/20 06/20/20 06/20/20 Range/Units 08:20 08:38 08:38 WBC (4.0-11.0) K/uL RBC (4.30-5.90) M/uL Hgb (12.0-16.0) g/dL Hct (36.0-46.0) % MCV (80.0-98.0) fL MCH (27.0-32.0) pg MCHC (31.0-37.0) g/dL RDW Std Deviation (28.0-62.0) fl RDW Coeff of Iesha (11.0-15.0) % Plt Count (150-400) K/uL MPV (7.40-12.00) fL Neut % (Auto) (48.0-80.0) % Lymph % (Auto) (16.0-40.0) % Bucks % (Auto) (0.0-15.0) % Eos % (Auto) (0.0-7.0) % Baso % (Auto) (0.0-1.5) % Neut # (Auto) (1.4-5.7) K/uL Lymph # (Auto) (0.6-2.4) K/uL Bucks # (Auto) (0.0-0.8) K/uL Eos # (Auto) (0.0-0.7) K/uL Baso # (Auto) (0.0-0.1) K/uL Nucleated RBC % /100WBC Nucleated RBCs # K/uL APTT (18.6-31.3) SEC Fibrinogen (215-411) mg/dL Lactate 2.7 H* (0.20-2.00) mmol/L Sodium 144 (136-145) mmol/L Potassium 4.0 (3.5-5.1) mmol/L Chloride 111 H (98-107) mmol/L Carbon Dioxide 29.2 (21.0-32.0) mmol/L BUN 16 (7.0-18.0) mg/dL Creatinine 0.8 (0.6-1.0) mg/dL Est Cr Clr Drug Dosing 86.36 mL/min Estimated GFR (MDRD) > 60.0 ml/min Glucose 126 H (74-106) mg/dL Calcium 7.6 L (8.5-10.1) mg/dL Total Bilirubin 0.5 (0.2-1.0) mg/dL AST 13 L (15-37) IU/L ALT 17 (14-63) IU/L Alkaline Phosphatase 37 L (46-116) U/L Troponin I < 0.050 (0.000-0.056) ng/mL Total Protein 4.0 L (6.4-8.2) g/dL Albumin 2.2 L (3.4-5.0) g/dL Globulin 1.8 L (2.6-4.0) g/dL Albumin/Globulin Ratio 1.2 (0.9-1.6) TSH 3rd Generation 0.02 L (0.36-3.74) uIU/mL Blood Type Antibody Screen Crossmatch 06/20/20 06/20/20 06/20/20 Range/Units 11:55 11:55 11:55 WBC 8.51 (4.0-11.0) K/uL RBC 3.06 L (4.30-5.90) M/uL Hgb 9.3 L (12.0-16.0) g/dL Hct 28.1 L (36.0-46.0) % MCV 91.8 (80.0-98.0) fL MCH 30.4 (27.0-32.0) pg MCHC 33.1 (31.0-37.0) g/dL RDW Std Deviation 48.3 (28.0-62.0) fl RDW Coeff of Iesha 15 (11.0-15.0) % Plt Count 157 (150-400) K/uL MPV 9.10 (7.40-12.00) fL Neut % (Auto) 66.4 (48.0-80.0) % Lymph % (Auto) 21.6 (16.0-40.0) % Bucks % (Auto) 11.9 (0.0-15.0) % Eos % (Auto) 0.0 (0.0-7.0) % Baso % (Auto) 0.1 (0.0-1.5) % Neut # (Auto) 5.7 (1.4-5.7) K/uL Lymph # (Auto) 1.8 (0.6-2.4) K/uL Bucks # (Auto) 1.0 H (0.0-0.8) K/uL Eos # (Auto) 0.0 (0.0-0.7) K/uL Baso # (Auto) 0.0 (0.0-0.1) K/uL Nucleated RBC % 0.0 /100WBC Nucleated RBCs # 0 K/uL APTT 23.9 (18.6-31.3) SEC Fibrinogen 234 (215-411) mg/dL Lactate (0.20-2.00) mmol/L Sodium 141 (136-145) mmol/L Potassium 4.7 (3.5-5.1) mmol/L Chloride 109 H (98-107) mmol/L Carbon Dioxide 26.7 (21.0-32.0) mmol/L BUN 20 H (7.0-18.0) mg/dL Creatinine 0.9 (0.6-1.0) mg/dL Est Cr Clr Drug Dosing 76.76 mL/min Estimated GFR (MDRD) > 60.0 ml/min Glucose 112 H (74-106) mg/dL Calcium 7.8 L (8.5-10.1) mg/dL Total Bilirubin 0.7 (0.2-1.0) mg/dL AST 14 L (15-37) IU/L ALT 18 (14-63) IU/L Alkaline Phosphatase 37 L (46-116) U/L Troponin I (0.000-0.056) ng/mL Total Protein 4.1 L (6.4-8.2) g/dL Albumin 2.3 L (3.4-5.0) g/dL Globulin 1.8 L (2.6-4.0) g/dL Albumin/Globulin Ratio 1.3 (0.9-1.6) TSH 3rd Generation (0.36-3.74) uIU/mL Blood Type Antibody Screen Crossmatch 06/20/20 06/20/20 Range/Units 11:55 14:53 WBC 7.63 (4.0-11.0) K/uL RBC 2.88 L (4.30-5.90) M/uL Hgb 9.0 L (12.0-16.0) g/dL Hct 26.2 L (36.0-46.0) % MCV 91.0 (80.0-98.0) fL MCH 31.3 (27.0-32.0) pg MCHC 34.4 (31.0-37.0) g/dL RDW Std Deviation 47.9 (28.0-62.0) fl RDW Coeff of Iesha 15 (11.0-15.0) % Plt Count 150 (150-400) K/uL MPV 9.20 (7.40-12.00) fL Neut % (Auto) (48.0-80.0) % Lymph % (Auto) (16.0-40.0) % Bucks % (Auto) (0.0-15.0) % Eos % (Auto) (0.0-7.0) % Baso % (Auto) (0.0-1.5) % Neut # (Auto) (1.4-5.7) K/uL Lymph # (Auto) (0.6-2.4) K/uL Bucks # (Auto) (0.0-0.8) K/uL Eos # (Auto) (0.0-0.7) K/uL Baso # (Auto) (0.0-0.1) K/uL Nucleated RBC % 0.0 /100WBC Nucleated RBCs # 0 K/uL APTT (18.6-31.3) SEC Fibrinogen (215-411) mg/dL Lactate 1.2 (0.20-2.00) mmol/L Sodium (136-145) mmol/L Potassium (3.5-5.1) mmol/L Chloride (98-107) mmol/L Carbon Dioxide (21.0-32.0) mmol/L BUN (7.0-18.0) mg/dL Creatinine (0.6-1.0) mg/dL Est Cr Clr Drug Dosing mL/min Estimated GFR (MDRD) ml/min Glucose (74-106) mg/dL Calcium (8.5-10.1) mg/dL Total Bilirubin (0.2-1.0) mg/dL AST (15-37) IU/L ALT (14-63) IU/L Alkaline Phosphatase (46-116) U/L Troponin I (0.000-0.056) ng/mL Total Protein (6.4-8.2) g/dL Albumin (3.4-5.0) g/dL Globulin (2.6-4.0) g/dL Albumin/Globulin Ratio (0.9-1.6) TSH 3rd Generation (0.36-3.74) uIU/mL Blood Type Antibody Screen Crossmatch Med Orders - Current: Current Medications Hydrocodone Bitart/Acetaminophen (Linden 325-5 Mg) 1 tab PO Q4H PRN PRN Reason: Abdominal Pain Last Admin: 06/21/20 04:23 Dose: 1 tab Documented by: Acetaminophen 1,000 mg/ Premix 100 mls @ 400 mls/hr IV Q6H PRN PRN Reason: Pain Last Admin: 06/20/20 16:39 Dose: 400 mls/hr Documented by: Lactated Ringer's (Ringers, Lactated) 1,000 mls @ 125 mls/hr IV ASDIRECTED [facility] Last Admin: 06/21/20 04:22 Dose: 125 mls/hr Documented by: Metoprolol Succinate (Toprol Xl) [facility] [place] Last Admin: 06/20/20 09:57 Dose: Not Given Documented by: Morphine Sulfate (Morphine) 4 mg IVPUSH Q2H PRN PRN Reason: Pain (severe 7-10) Last Admin: 06/20/20 00:42 Dose: 4 mg Documented by: Naloxone HCl (Narcan) 0.1 mg IVPUSH ASDIRECTED PRN PRN Reason: Respiratory Depression Ondansetron HCl (Zofran) 4 mg IVPUSH Q4H PRN PRN Reason: Nausea Last Admin: 06/19/20 23:30 Dose: 4 mg Documented by: Ondansetron HCl (Zofran) 4 mg IVPUSH Q6H PRN PRN Reason: Nausea/Vomiting Thyroid,Pork [Theatrical Trouper (Thyroid] 90 Mg) 1.5 each PO [facility] Last Admin: 06/20/20 09:15 Dose: 1.5 each Documented by: Promethazine HCl (Phenergan) 25 mg IM Q6H PRN PRN Reason: Nausea/Vomiting Last Admin: 06/20/20 01:08 Dose: 25 mg Documented by: Discontinued Medications Albuterol (Proventil Neb Soln) 2.5 mg NEB ONETIME PRN PRN Reason: Wheezing Atropine Sulfate (Atropine 0.1 Mg/Ml) 0.5 mg IVPUSH ASDIRECTED PRN PRN Reason: Hypo-perfusion Atropine Sulfate (Atropine 0.1 Mg/Ml) 1 mg IVPUSH ASDIRECTED PRN PRN Reason: Hypo-Perfusion Bupivacaine HCl (Sensorcaine-Mpf 0.25%) Confirm Administered Dose 20 ml .ROUTE .STK-MED ONE Stop: 06/20/20 04:18 Calcium Gluconate (Calcium Gluconate) 1 gm IV ONETIME ONE Stop: 06/20/20 03:16 Last Admin: 06/20/20 03:37 Dose: 1 gm Documented by: Cefazolin Sodium (Ancef) Confirm Administered Dose 2 gm .ROUTE .STK-MED ONE Stop: 06/19/20 10:34 Dexamethasone (Dexamethasone) Confirm Administered Dose 20 mg .ROUTE .STK-MED ONE Stop: 06/19/20 10:38 Dextrose/Water (Dextrose 50% In Water) 50 ml IVPUSH ASDIRECTED PRN PRN Reason: Hypoglycemia Enoxaparin Sodium (Lovenox) 30 mg SUBCUT ONETIME ONE Stop: 06/19/20 06:32 Last Admin: 06/19/20 10:51 Dose: 30 mg Documented by: Epinephrine HCl (Epinephrine 1:10,000) 1 mg IVPUSH ASDIRECTED PRN PRN Reason: ACLS Guidelines Fentanyl (Sublimaze) Confirm Administered Dose 250 mcg .ROUTE .STK-MED ONE Stop: 06/19/20 07:22 Fentanyl (Sublimaze) 50 mcg IVPUSH Q5M PRN PRN Reason: Pain Fentanyl (Sublimaze) Confirm Administered Dose 250 mcg .ROUTE .STK-MED ONE Stop: 06/19/20 12:19 Fentanyl (Sublimaze) Confirm Administered Dose 250 mcg .ROUTE .STK-MED ONE Stop: 06/20/20 03:38 Fentanyl (Sublimaze) 50 - 100 mcg IVPUSH Q5M PRN PRN Reason: Pain Fluorescein Sodium (Ak-Fluor) Confirm Administered Dose 5 ml .ROUTE .STK-MED ONE Stop: 06/19/20 09:48 Glycopyrrolate (Robinul) Confirm Administered Dose 0.8 mg .ROUTE .STK-MED ONE Stop: 06/19/20 07:22 Glycopyrrolate (Robinul) Confirm Administered Dose 0.2 mg .ROUTE .STK-MED ONE Stop: 06/20/20 05:14 Hydromorphone HCl (Dilaudid) Confirm Administered Dose 2 mg .ROUTE .STK-MED ONE Stop: 06/19/20 13:20 Last Admin: 06/19/20 15:08 Dose: Not Given Documented by: Hydromorphone HCl (Dilaudid) 2 mg IVPUSH ONETIME ONE Stop: 06/19/20 13:21 Last Admin: 06/19/20 13:20 Dose: 2 mg Documented by: Lactated Ringer's (Ringers, Lactated) 1,000 mls @ 100 mls/hr IV ASDIRECTED [facility] Last Infusion: 06/19/20 20:40 Dose: Infused Documented by: Sodium Chloride (Normal Saline) Confirm Administered Dose 20 mls @ as directed .ROUTE .STK-MED ONE Stop: 06/19/20 10:34 Lactated Ringer's (Ringers, Lactated) 1,000 mls @ 999 mls/hr IV .BOLUS ONE Stop: 06/20/20 01:39 Last Admin: 06/20/20 02:56 Dose: 999 mls/hr Documented by: Sodium Chloride (Normal Saline) 1,000 mls @ 999 mls/hr IV BOLUS SIXTO Lactated Ringer's (Ringers, Lactated) 1,000 mls @ 999 mls/hr IV .BOLUS ONE Stop: 06/20/20 03:48 Last Admin: 06/20/20 03:10 Dose: 999 mls/hr Documented by: Lactated Ringer's (Ringers, Lactated) 500 mls @ 999 mls/hr IV .BOLUS ONE Stop: 06/20/20 14:05 Last Admin: 06/20/20 13:52 Dose: 999 mls/hr Documented by: Lactated Ringer's (Ringers, Lactated) 500 mls @ 999 mls/hr IV .BOLUS ONE Stop: 06/20/20 15:50 Last Admin: 06/20/20 15:33 Dose: 999 mls/hr Documented by: Ketorolac Tromethamine (Toradol) Confirm Administered Dose 30 mg .ROUTE .STK-MED ONE Stop: 06/19/20 07:22 Lidocaine (Xylocaine-Mpf 2%) Confirm Administered Dose 5 ml .ROUTE .STK-MED ONE Stop: 06/19/20 07:22 Lidocaine (Xylocaine-Mpf 2%) Confirm Administered Dose 5 ml .ROUTE .STK-MED ONE Stop: 06/20/20 03:39 Midazolam HCl (Versed 1 Mg/Ml) Confirm Administered Dose 2 mg .ROUTE .STK-MED ONE Stop: 06/19/20 07:22 Midazolam HCl (Versed 1 Mg/Ml) Confirm Administered Dose 2 mg .ROUTE .STK-MED ONE Stop: 06/20/20 03:38 Ondansetron HCl (Zofran) Confirm Administered Dose 4 mg .ROUTE .STK-MED ONE Stop: 06/19/20 07:22 Ondansetron HCl (Zofran) 4 mg IVPUSH Q6H PRN PRN Reason: Nausea/Vomiting Last Admin: 06/19/20 18:42 Dose: 4 mg Documented by: Ondansetron HCl (Zofran) Confirm Administered Dose 4 mg .ROUTE .ST-MED ONE Stop: 06/20/20 05:14 Oxycodone/Acetaminophen (Percocet 325-5 Mg) 1 tab PO Q4H PRN PRN Reason: Pain (moderate 4-6) Oxycodone/Acetaminophen (Percocet 325-5 Mg) 2 tab PO Q4H PRN PRN Reason: Pain (moderate 4-6) Last Admin: 06/19/20 18:15 Dose: 2 tab Documented by: Oxycodone/Acetaminophen (Percocet 325-5 Mg) 1 tab PO Q4H PRN PRN Reason: Pain (moderate 4-6) Oxycodone/Acetaminophen (Percocet 325-5 Mg) 2 tab PO Q4H PRN PRN Reason: Pain (moderate 4-6) Propofol (Diprivan 20 Ml) Confirm Administered Dose 200 mg .ROUTE .ST-MED ONE Stop: 06/19/20 07:22 Propofol (Diprivan 20 Ml) Confirm Administered Dose 200 mg .ROUTE .STK-MED ONE Stop: 06/20/20 03:38 Rocuronium Hutchinson (Rocuronium Hutchinson) Confirm Administered Dose 50 mg .ROUTE .STK-MED ONE Stop: 06/19/20 07:22 Rocuronium Hutchinson (Rocuronium Hutchinson) Confirm Administered Dose 50 mg .ROUTE .ST-MED ONE Stop: 06/20/20 03:38 - Exam Wound/Incisions: Dressing Dry and Intact General: Alert, Oriented Neck: Supple Lungs: Normal Respiratory Effort GI/Abdominal Exam: Soft, Non-Tender, No Distention Extremities: Non-Tender. No: No Pedal Edema (trace) Skin: Warm, Dry, Intact Neurological: No New Focal Deficit Psy/Mental Status: Alert, Normal Affect, Normal Mood Sepsis Event Note - Evaluation Sepsis Screening Result: No Definite Risk - Focused Exam Vital Signs: Vital Signs Temp Resp BP Pulse Ox 06/21/20 05:00 18 98/40 L 96 06/21/20 04:00 36.4 C 18 95/38 L 96 06/21/20 03:00 16 103/45 L 97 06/21/20 02:00 18 93/46 L 95 06/21/20 01:00 16 100/44 L 95 06/21/20 00:00 36.6 C 17 96/42 L 95 06/20/20 23:00 19 100/47 L 94 L 06/20/20 22:00 20 95/42 L 95 06/20/20 21:00 16 95/50 L 96 06/20/20 20:00 36.9 C 20 98/44 L 96 - Problem List & Annotations (1) Menorrhagia SNOMED Code(s): 525309674 Code(s): N92.0 - EXCESSIVE AND FREQUENT MENSTRUATION WITH REGULAR CYCLE Status: Acute Current Visit: Yes (2) Postoperative hemorrhage SNOMED Code(s): 687595664 Code(s): PRC0252 - Status: Acute Current Visit: Yes Qualifiers: Surgical complication system/body Area: genitourinary Procedure type: genitourinary Qualified Code(s): N99.820 - Postprocedural hemorrhage of a genitourinary system organ or structure following a genitourinary system procedure - Problem List Review Problem List Initiated/Reviewed/Updated: Yes - My Orders Last 24 Hours: Active Orders 24 hr Category Date Time Status CBC WITH AUTO DIFF [HEME] Routine Lab 06/21/20 07:45 Ordered CMP [COMPREHENSIVE METABOLIC PN,CMP] [CHEM] Routine Lab 06/21/20 07:45 Ordered CULTURE BLOOD [BC] Stat Lab 06/20/20 11:55 Received CULTURE BLOOD [BC] Stat Lab 06/20/20 12:05 Received IONIZED CALCIUM,WHOLE BLOOD [BG] Routine Lab 06/21/20 07:57 Ordered Acetaminophen/HYDROcodone [Linden 325-5 MG] Med 06/20/20 07:21 Active 1 tab PO Q4H PRN Metoprolol Succinate [Toprol XL] Med 06/20/20 09:00 Active 25 mg PO QAM Patient's Own Medication [Ptom] Med 06/20/20 09:00 Active 1.5 each PO QAM Blood Culture x2 Reflex Set [OM.PC] Stat Oth 06/20/20 12:00 Ordered Medication Orders Hydrocodone Bitart/Acetaminophen (Linden 325-5 Mg) 1 tab PO Q4H PRN PRN Reason: Abdominal Pain Last Admin: 06/21/20 04:23 Dose: 1 tab Documented by: Admin: 06/20/20 22:06 Dose: 1 tab Documented by: Admin: 06/20/20 17:47 Dose: 1 tab Documented by: Admin: 06/20/20 13:23 Dose: 1 tab Documented by: Admin: 06/20/20 09:20 Dose: 1 tab Documented by: KHAI Acetaminophen 1,000 mg/ Premix 100 mls @ 400 mls/hr IV Q6H PRN PRN Reason: Pain Last Admin: 06/20/20 16:39 Dose: 400 mls/hr Documented by: Infusion: 06/20/20 10:53 Dose: 400 mls/hr Documented by: Admin: 06/20/20 10:38 Dose: 400 mls/hr Documented by: Infusion: 06/19/20 13:25 Dose: 400 mls/hr Documented by: Admin: 06/19/20 13:10 Dose: 400 mls/hr Documented by: MELISSANOTIF Lactated Ringer's (Ringers, Lactated) 1,000 mls @ 125 mls/hr IV ASDIRECTED [facility] Last Admin: 06/21/20 04:22 Dose: 125 mls/hr Documented by: Infusion: 06/21/20 04:14 Dose: 125 mls/hr Documented by: Admin: 06/20/20 20:14 Dose: 125 mls/hr Documented by: Infusion: 06/20/20 20:14 Dose: 125 mls/hr Documented by: Admin: 06/20/20 15:15 Dose: 125 mls/hr Documented by: Infusion: 06/20/20 15:15 Dose: 125 mls/hr Documented by: Admin: 06/20/20 10:13 Dose: 125 mls/hr Documented by: Infusion: 06/20/20 09:21 Dose: 125 mls/hr Documented by: Admin: 06/20/20 01:21 Dose: 125 mls/hr Documented by: REYES Metoprolol Succinate (Toprol Xl) 25 mg PO [facility] Last Admin: 06/20/20 09:57 Dose: Not Given Documented by: KHAI Morphine Sulfate (Morphine) 4 mg IVPUSH Q2H PRN PRN Reason: Pain (severe 7-10) Last Admin: 06/20/20 00:42 Dose: 4 mg Documented by: COURTNEY Naloxone HCl (Narcan) 0.1 mg IVPUSH ASDIRECTED PRN PRN Reason: Respiratory Depression Ondansetron HCl (Zofran) 4 mg IVPUSH Q4H PRN PRN Reason: Nausea Last Admin: 06/19/20 23:30 Dose: 4 mg Documented by: REYES Ondansetron HCl (Zofran) 4 mg IVPUSH Q6H PRN PRN Reason: Nausea/Vomiting Thyroid,Pork [Theatrical Trouper (Thyroid] 90 Mg) 1.5 each PO [facility] Last Admin: 06/20/20 09:15 Dose: 1.5 each Documented by: KHAI Promethazine HCl (Phenergan) 25 mg IM Q6H PRN PRN Reason: Nausea/Vomiting Last Admin: 06/20/20 01:08 Dose: 25 mg Documented by: Admin: 06/19/20 13:55 Dose: 25 mg Documented by: ANEESHIF - Assessment Assessment (Free Text/Narrative):: POD#2 after total vaginal hysterectomy complicated by postoperative hemorrhage, requiring laparoscopic hemoglobin stabilized yesterday, will recheck this am hypocalcemia check ionized calcium replace if needed hypothyroidism patient on alternative thyroid replacement, current overcorrected, reduce dose to 90 mcg, this may be contributing to tachycardia as well history of NONSTEMI normal troponin levels, still holding anticoagulants until stable from hemorrhage DVT prophylaxis Continue with SCDs - Plan Plan (Free Text/Narrative):: Up to chair today, if compensating , may try standing with assist. Decrease dose of thyroid replacement Continue IVF at this time, will recheck labs this am, if stable may saline lock IV Personal care (new gown, sponge bath) Continue with NORCO for pain control Catheter out if able to be up without dizziness.
[2020-06-21] MEDS ORDERED: Calcium Gluconate 10% 1 GM/10 ML SDV IV ONE (08:39)
[2020-06-21] MEDS: Metoprolol Succinate 25 MG Tab.ER PO SCH (09:00)
[2020-06-21 09:02] LABS: BLOOD UREA NITROGEN,BUN 11 mg/dL (7.0-18.0); CARBON DIOXIDE,CO2 25.5 mmol/L (21.0-32.0); CHLORIDE,CL 112 mmol/L (98-107); GLUCOSE RANDOM 93 mg/dL (74-106); POTASSIUM,K 3.9 mmol/L (3.5-5.1); SODIUM,NA 143 mmol/L (136-145)
[2020-06-21] MEDS ORDERED: Calcium Gluconate 2 GM in Sodium Chloride 0.9% 100 ML IV ONE (09:15)
[2020-06-21 10:07] VITALS: PULSE 104
[2020-06-21] MEDS: THYROID PORK 90 MG PO SCH (12:35)
--- NOTE | 2020-06-21 15:16 | PCM.SN.2 ---
- Free Text/Narrative Note: Discussed planning with patient and her . Her hemoglobin has been stable between 8.1 and 8.8 over the past 24 hours, however she is still experiencing dizziness, diastolic BP still about 10 below baseline. Proceeding with transfusion of 4th unit of blood at this point may help her to recover from fatigue and dizziness and hopefully bring vitals back to her baseline normal range. After discussion of risks and benefits, she would like to proceed with transfusion of 1 additional unit of PRBC, will check H&H 1 hour after transfusion, will discuss discharge plans after that depending on how she is feeling.
[2020-06-22] MEDS ORDERED: Sodium Chloride 0.9% 2.5 ML Syringe FLUSH PRN (01:27)
[2020-06-22] MEDS: Acetaminophen/HYDROcodone 325-5 MG Tab PO PRN (05:02)
[2020-06-22 05:32] LABS: BLOOD UREA NITROGEN,BUN 10 mg/dL (7.0-18.0); CARBON DIOXIDE,CO2 25.8 mmol/L (21.0-32.0); CHLORIDE,CL 112 mmol/L (98-107); GLUCOSE RANDOM 93 mg/dL (74-106); POTASSIUM,K 4.2 mmol/L (3.5-5.1); SODIUM,NA 143 mmol/L (136-145)
[2020-06-22 09:11] VITALS: BP 117/39
--- NOTE | 2020-06-22 14:20 | DISCH ---
DATE OF DISCHARGE: 06/22/2020 PRIMARY CARE PHYSICIAN: Ranjeet Melgar MD ADMITTING DIAGNOSES: Menometrorrhagia; anticoagulated. DISCHARGE DIAGNOSES: Menometrorrhagia; anticoagulated; postoperative hemorrhage; hyperthyroidism, iatrogenic. BRIEF HISTORY: This is a 45-year-old female. She has been seen in the clinic with complaints of menorrhagia, heavy blood loss. Her periods are prolonged and heavy. She has been evaluated over the prior eight months. She is on clopidogrel and aspirin due to a ery-UB-hjmikuhck ND, which was approximately five years ago. A stent was placed, and she reports that she does run half marathons. In the meantime, she has no residual chest pain. However, she does have a ParaGard IUD. Her periods are extremely heavy. She gets very weak and fatigued during her periods. Sometimes she bleeds for up to three weeks at a time continuously. She has previously been offered hormonal IUD, which she declines due to severe PMDD. She has previously been offered endometrial ablation, which she also declines. She has considered a hysterectomy since last summer and has considered all of the other options and in fact had previously scheduled an endometrial ablation and canceled it, and at this point, she is very certain that she wants to proceed with a hysterectomy. She had an endometrial ultrasound in January showing an endometrial thickness without polyps or fibroids, an endometrial thickness of 8 mm. She was also seen preoperatively by her primary care physician. She had stopped her clopidogrel five days prior to the procedure; her aspirin 10 days prior to the procedure; and preoperative examination showed a blood pressure of 104/74, pulse of 76, respiratory rate of 12, temperature was 97.8, oxygen on room air was 98% and laboratory studies showed a hemoglobin of 15.9, platelet count of 272, white blood cell count of 11.4. Normal 14-panel chemistry evaluation. Urine test was negative. EKG was normal with a normal QR interval, normal QRS duration. [place] is normal. No T-wave inversion or ST-segment elevation. Chest x-ray was normal, and she was cleared by primary care for her procedure. HOSPITAL COURSE: She was admitted to same-day surgery and underwent a total vaginal hysterectomy with cystoscopy without apparent complications. The hysterectomy was performed with precautions for bleeding, including doubly clamping every pedicle. She had received Lovenox preoperatively due to cardiovascular risk and DVT prophylaxis and initially was stable postoperatively, was transferred for prolonged evaluation and monitoring, anticipating discharge in the morning. She approximately 12 hours following the surgery began to have episode of hypotension and dizziness. Blood pressures initially postop were 109/44, 115/49, 114/54, 118/57. When she was in pain, she had some elevated blood pressures up to a max of 144 systolic over 57 diastolic. At 12:30 a.m., she went from a blood pressure of 105/61, suddenly to a blood pressure of 63/35 with a pulse of 108. Her pulse previously had been 74. Over the next hour, her blood pressures remained low. Laboratory studies were obtained including of 11.5, hematocrit 34.8, white blood cell count of 13.8. Lactate was 4.4. Glucose 236. Platelet count was 297, and although her hemoglobin was normal, given her recent surgery and hypotension, there was suspicion for abdominal hemorrhage and therefore rapid response was called and bedside ultrasound performed showed large amount of fluid within the abdomen. An emergency laparoscopy was performed with findings of 1500 mL of blood in the abdomen. The blood was evacuated. The pelvis was carefully inspected. There were no discrete areas of bleeding. There was a small amount of diffuse blood from the anterior cuff. These areas were coagulated. There was a small area adjacent to the left uterosacral ligament that was also coagulated. There were no other areas of active bleeding under high and low pressure. Therefore, Jean was placed in the pelvis and the abdomen was desufflated, and she was monitored postoperatively. During the perioperative period, she had received 3 units of packed red blood cells, 2 units of fibronectin, and copious IV fluids. Postoperatively, in the recovery room, her hemoglobin was 11.9, however, dropped to 8.1 postoperatively and remained between 8 and 9 throughout the duration of her stay. However, blood pressures remained low postoperatively. Her metoprolol was discontinued. Laboratory studies were obtained. Her lactate dropped back to a normal level of 1.2 within 12 hours of the surgery. She had had two negative troponins. Her fibrinogen remained over 200, INR at 1.24. POSTOPERATIVE COURSE: So immediately postoperatively and throughout the remainder of her stay, she was monitored in the ICU with the assistance of the eICU team. She did receive calcium gluconate postoperatively, IV fluids. On postoperative day #1, although her hemoglobin remained fairly stable at 8.6 to 8.9, I did recommend proceeding with a 4th unit as her blood pressures continued to be in the hypotensive range with the systolic near 100, but the diastolic remaining from 36 to 44. After she received the 4th unit of packed red blood cells, she was able to ambulate, she was able to stand without dizziness, and she had a normal urine output. By postoperative day #2, she was tolerating a regular diet. Her pain was well controlled with occasional [place], and she denied any shortness of breath or chest pain. PHYSICAL EXAMINATION: VITAL SIGNS: On the day of discharge, her temperature was 37.6, pulse of 90, blood pressure 96/42, respiratory rate of 18, pulse ox of 96. GENERAL: She is alert and oriented, in no acute distress. NECK: Supple without lymphadenopathy or thyromegaly. LUNGS: Clear bilaterally. CV: Regular without murmur. ABDOMEN: The three small incision sites from laparoscopy were intact with no surrounding erythema or bruising. Soft and nontender with active bowel sounds. EXTREMITIES: Show trace edema. 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 DISCHARGE INSTRUCTIONS: Nothing per vagina for six weeks. No lifting more than 10 pounds for two weeks. No driving until she is no longer requiring pain medications. She may use [place] as needed for pain, however, transition to Tylenol as soon as possible. DISCHARGE MEDICATIONS: [place] 325/5 one p.o. q.4 hours as needed, #15 are dispensed. She will hold her metoprolol for one week and then resume metoprolol 25 mg ER q.a.m. She will also hold her clopidogrel for one week and resume at 75 mg p.o. daily. She will decrease her pork thyroid hormone to 90 mg one p.o. daily with a recheck on her labs in one month. She may resume simvastatin 20 mg daily, may resume multivitamin. She will hold her aspirin 81 mg for two weeks and then may resume. FOLLOWUP: Followup appointments are scheduled in two and six weeks. However, she is given strict precautions that if she feels dizzy, has increased abdominal pain, or other concerns, she should call the clinic immediately, or if she is unable to access a provider, she should go to the emergency room. CHARITY SALEEM /[id number]
== END 2020-06-22 08:50 | disposition home or self-care (01) | DRG 513 ==
LOC: MW.SDS 10:16 → MW.MS 13:09 → MW.ICU 06-20 04:08 → MW.SDS 06-20 06:10 → MW.ICU 06-20 06:12 → OBSVTOIN 06-21 12:51
PROVIDERS: ADMIT Obstetrics & Gynecology; ATTEND Obstetrics & Gynecology
PROC: 0UT97ZZ Resection of Uterus, Via Natural or Artificial Opening (ICD-10-PCS; principal; 2020-06-19)
PROC: 0TJB8ZZ Inspection of Bladder, Via Natural or Artificial Opening Endoscopic (ICD-10-PCS; 2020-06-19)
PROC: 0W9G4ZZ Drainage of Peritoneal Cavity, Percutaneous Endoscopic Approach (ICD-10-PCS; 2020-06-20)
PROC: 30233N1 Transfusion of Nonautologous Red Blood Cells into Peripheral Vein, Percutaneous Approach (ICD-10-PCS; 2020-06-20)
PROC: 30233K1 Transfusion of Nonautologous Frozen Plasma into Peripheral Vein, Percutaneous Approach (ICD-10-PCS; 2020-06-20)
DX: N92.1 Excessive and frequent menstruation with irregular cycle (principal); K66.1 Hemoperitoneum; H91.90 Unspecified hearing loss, unspecified ear; N99.820 Postprocedural hemorrhage of a genitourinary system organ or structure following a genitourinary system procedure; I95.9 Hypotension, unspecified; I25.10 Atherosclerotic heart disease of native coronary artery without angina pectoris; K57.90 Diverticulosis of intestine, part unspecified, without perforation or abscess without bleeding; F41.0 Panic disorder [episodic paroxysmal anxiety]; F32.9 Major depressive disorder, single episode, unspecified; E03.9 Hypothyroidism, unspecified; M85.80 Other specified disorders of bone density and structure, unspecified site; E83.51 Hypocalcemia; I25.2 Old myocardial infarction; Z98.890 Other specified postprocedural states; Z79.82 Long term (current) use of aspirin; Z79.899 Other long term (current) drug therapy
CPT/HCPCS: 36415; 36430; 51702; 80048; 80053; 82330; 82962; 83605; 84443; 84484; 84703; 85014; 85018; 85025; 85027; 85384; 85610; 85730; 86850; 86900; 86901; 86920; 86921; 86922; 87040; 88307; 93005; 96361; 96365; 96366; 96375; A9270-GY; G0378; J0131; J0610; J0690; J1100; J1170; J1650; J1885; J2001; J2250; J2270; J2405; J2550; J2704; J3010; J3490; J7120; P9016; P9017